=== PATIENT | female | born 1930 | race Caucasian/White ===

== ENCOUNTER 2016-10-17 15:52 | Inpatient (IN) ==
[2016-10-17] MEDS ORDERED: *HR* Morphine 2 MG/ML SYRINGE IV ONE (16:23)
[2016-10-17] MEDS ORDERED: Ondansetron 4 MG/2 ML VIAL IV ONE (16:23)
--- NOTE | 2016-10-17 16:25 | Emergency Department Note ---
Disposition Clinical Impression: Bronchitis Pancreatitis Qualifiers: Chronicity: acute Pancreatitis type: unspecified pancreatitis type Acute pancreatitis complication: no infection or necrosis Qualified Code(s): K85.90 - Acute pancreatitis without necrosis or infection, unspecified Abdominal pain Qualifiers: Abdominal location: generalized Qualified Code(s): R10.84 - Generalized abdominal pain Disposition: Admitted As Inpatient Condition: Fair Referrals: NO,PCP [Non-Partnered Physician] - Forms: Work/School Release, ED Satisfaction Letter Weakness HPI - General Chief complaint: ED General Medical Stated complaint: weakness/n/v/cough/abd pain/headache Time Seen by Provider: 10/17/16 15:55 Source: EMS Limitations: no limitations Nursing Notes Reviewed: Yes Vital Signs Reviewed: Yes - History of Present Illness HPI Narrative: Patient is a 86-year-old female with multiple complaints today. She was here 4 days ago for complaints of generalized weakness and cough she is placed in a Z- Fabricio for bronchitis. She still have a productive cough but now is also complaining of increasing weakness and abdominal pain. She has a prior history of colon cancer with resection and colostomy. She recently 1 month ago underwent a surgery for a hernia around her colostomy but no recurrence of her cancer. She states she is weak she is unable to and related home decreased by mouth intake secondary to abdominal pain Pt Subjective Complaint: generalized weakness/fatigue Pain Scale: 8 - Related Data Previous Rx's Medication Instructions Recorded Albuterol Neb [Proventil Neb] 2.5 mg IH Q6HR #30 vial.neb 10/13/16 Doxycycline 100 mg PO BID #20 capsule 10/13/16 Allergies Allergy/AdvReac Type Severity Reaction Status Date / Time amlodipine [From Lotrel] Allergy Hives Verified 07/24/16 00:54 bacitracin Allergy Hives Verified 07/24/16 00:54 [From Neosporin ([id number])] benazepril [From Lotrel] Allergy Hives Verified 07/24/16 00:54 cephalexin Allergy Hives Verified 07/24/16 00:54 codeine Allergy Hives Verified 07/24/16 00:34 Erythromycin Base Allergy Hives Verified 07/24/16 00:54 Neomycin Allergy Hives Verified 07/24/16 00:54 [From Neosporin ([id number])] olmesartan [From Benicar] Allergy Hives Verified 07/24/16 00:54 Penicillins Allergy Hives Verified 07/24/16 00:34 polymyxin B Allergy Hives Verified 07/24/16 00:54 [From Neosporin ([id number])] All systems ED: reviewed and negative except as stated. Constitutional: Reports: weakness Cardiovascular: Denies: palpitations Respiratory: Reports: cough Gastrointestinal: Reports: abdominal pain, nausea. Denies: vomiting, diarrhea Past Medical History - Past Medical History Source: patient, old records reviewed, obtained from family, nursing notes reviewed Medical history: Reports: arthritis, atrial fibrillation, cancer, hyperlipidemia , hypertension Psychiatric history: Reports: no psych history - Social History Smoking Status: Never smoker Smokeless Tobacco Status: No Alcohol use: Reports: none Drug use: Reports: none Physical Exam - General Limitations: no limitations General appearance: alert, other (He looks ill nontoxic appearing) - Head Head exam: atraumatic, normocephalic, normal inspection - Eye Eye exam: Present: normal appearance, PERRL, EOMI - ENT ENT exam: normal exam, normal oropharynx, mucous membranes moist - Neck Neck exam: Present: normal inspection, full ROM, trachea midline - Chest Chest inspection: Present: normal inspection, symmetric chest wall rise - Respiratory Respiratory exam: Present: other (Rhonchorous cough on exam). Absent: respiratory distress, wheezes, accessory muscle use - Cardiovascular Cardiovascular exam: Present: regular rate, normal rhythm, normal heart sounds - Abdominal Exam Abdominal exam: Present: other (Patient has diffuse abdominal pain with voluntary guarding patent ostomy pain is moderate in intensity) - Back Exam Back exam: Present: normal inspection, full ROM. Absent: tenderness - Neurological Exam Neurological exam: Present: alert, oriented X3 - Psychiatric Psychiatric exam: Present: normal affect, normal mood - Skin Skin exam: Present: warm, dry, intact, normal color Course Vital Signs Temperature 97.3 F L 10/17/16 15:54 Pulse Rate 77 10/17/16 15:54 Respiratory Rate 18 10/17/16 15:54 Blood Pressure 141/78 10/17/16 15:54 O2 Sat by Pulse Oximetry 90 L 10/17/16 15:54 Temperature 97.3 F L 10/17/16 15:54 Pulse Rate 75 10/17/16 18:10 Respiratory Rate 18 10/17/16 18:10 Blood Pressure 143/72 10/17/16 18:10 O2 Sat by Pulse Oximetry 93 L 10/17/16 18:10 Oxygen Delivery Oxygen Delivery Nasal Cannula Weakness - Differential Diagnosis Differential Diagnosis: Likely: sepsis/infection, dehydration, medication effect , metabolic - Medical Records Medical records reviewed: Yes I reviewed the patient's medical records. - Lab Data Lab results reviewed: Yes I reviewed the patient's lab results. Result diagrams: 10/17/16 17:30 10/17/16 17:30 Lab Results 10/17/16 10/17/16 10/17/16 Range/Units 17:30 17:30 17:30 WBC 10.3 D (4.3-11.1) K/mcL RBC 3.53 L (3.82-4.97) M/mcL Hgb 10.9 L (11.5-15.4) g/dL Hct 33.3 L (35.3-44.9) % MCV 94.3 (83.0-100.0) fL MCH 30.9 (28.0-33.3) pg MCHC 32.7 (31.6-35.5) g/dL RDW 18.8 H (11.5-14.5) % Plt Count 218 (140-400) K/mcL MPV 10.0 (9.4-12.4) fL Immature Gran % 0.7 (0-4) % Seg Neutrophils % 77.0 % Lymphocytes % 16.1 % Monocytes % 5.9 % Eosinophils % 0.1 % Basophils % 0.2 % Neutrophils # 7.9 (1.6-8.9) K/mcL Lymphocytes # 1.7 (0.6-4.6) K/mcL Monocytes # 0.6 (0.0-1.3) K/mcL Eosinophils # 0.0 (0.0-0.6) K/mcL Basophils # 0.0 (0.0-0.2) K/mcL PT 12.8 H (9.4-12.1) Seconds INR 1.2 APTT 27.4 (26.0-36.0) Seconds Sodium 135 L (136-145) mEq/L Potassium 3.7 (3.5-4.5) mEq/L Chloride 99 (98-109) mEq/L Carbon Dioxide 23 (19-29) mEq/L BUN 17 (7-20) mg/dL Creatinine 1.52 H (0.57-1.11) mg/dL Est GFR ( Amer) 39 L (> 60) Est GFR (Non-Af Amer) 33 L (> 60) BUN/Creatinine Ratio 11 (6-26) Glucose 93 (70-99) mg/dL Calculated Osmolality 281 (280-300) Calcium 8.7 (8.6-10.8) mg/dL Troponin I (0-0.03) ng/mL B-Natriuretic Peptide (0-100) pg/mL Amylase 278 H (25-125) Units/L Lipase 796 H (8-78) Units/L 10/17/16 10/17/16 Range/Units 17:30 17:30 WBC (4.3-11.1) K/mcL RBC (3.82-4.97) M/mcL Hgb (11.5-15.4) g/dL Hct (35.3-44.9) % MCV (83.0-100.0) fL MCH (28.0-33.3) pg MCHC (31.6-35.5) g/dL RDW (11.5-14.5) % Plt Count (140-400) K/mcL MPV (9.4-12.4) fL Immature Gran % (0-4) % Seg Neutrophils % % Lymphocytes % % Monocytes % % Eosinophils % % Basophils % % Neutrophils # (1.6-8.9) K/mcL Lymphocytes # (0.6-4.6) K/mcL Monocytes # (0.0-1.3) K/mcL Eosinophils # (0.0-0.6) K/mcL Basophils # (0.0-0.2) K/mcL PT (9.4-12.1) Seconds INR APTT (26.0-36.0) Seconds Sodium (136-145) mEq/L Potassium (3.5-4.5) mEq/L Chloride (98-109) mEq/L Carbon Dioxide (19-29) mEq/L BUN (7-20) mg/dL Creatinine (0.57-1.11) mg/dL Est GFR ( Amer) (> 60) Est GFR (Non-Af Amer) (> 60) BUN/Creatinine Ratio (6-26) Glucose (70-99) mg/dL Calculated Osmolality (280-300) Calcium (8.6-10.8) mg/dL Troponin I 0.02 (0-0.03) ng/mL B-Natriuretic Peptide 170 H (0-100) pg/mL Amylase (25-125) Units/L Lipase (8-78) Units/L - Radiology Data Radiology results reviewed: Yes I reviewed the patient's radiology results.
[2016-10-17 17:44] LABS: Basophils % 0.2 %; Eosinophils % 0.1 %; Hematocrit 33.3 % (35.3-44.9); Hemoglobin 10.9 g/dL (11.5-15.4); Immature Granulocytes % 0.7 % (0-4); Lymphocytes # 1.7 K/mcL (0.6-4.6); Lymphocytes % 16.1 %; Mean Corpuscular HGB Conc 32.7 g/dL (31.6-35.5); Mean Corpuscular Hemoglobin 30.9 pg (28.0-33.3); Mean Corpuscular Volume 94.3 fL (83.0-100.0); Monocytes # 0.6 K/mcL (0.0-1.3); Monocytes % 5.9 %; Platelet Count 218 K/mcL (140-400); Red Blood Count 3.53 M/mcL (3.82-4.97); Red Cell Distribution Width 18.8 % (11.5-14.5)
[2016-10-17 17:46] LABS: Neutrophils # 7.9 K/mcL (1.6-8.9)
[2016-10-17 17:48] LABS: INR 1.2; Prothrombin Time 12.8 Seconds (9.4-12.1)
[2016-10-17 17:50] LABS: Activated Partial Thrombo Time 27.4 Seconds (26.0-36.0)
[2016-10-17 17:56] LABS: Calcium 8.7 mg/dL (8.6-10.8); Potassium 3.7 mEq/L (3.5-4.5)
[2016-10-17] MEDS ORDERED: *HR* HYDROmorphone (PF) 1 MG/ML SYRINGE IV ONE (18:44)
[2016-10-17] MEDS ORDERED: 0.9 % Sodium Chloride 1,000 ML IVC ONE (18:45)
[2016-10-17] MEDS: Ipratropium/Albuterol Neb 3 ML IH ONE ×2 (20:00→22:37)
[2016-10-17 20:47] LABS: ABG Base Excess -0.8 mEq/L (-2.0 to 3.0); ABG HCO3 24.3 mEQ/L (21-27); ABG Oxygen Saturation 82 % (95-98); ABG PCO2 41 mmHg (35-45); ABG PH 7.38 pH Units (7.32-7.45); ABG TCO2 25.6 mEq/L (20-26)
[2016-10-17 20:50] LABS: ABG PO2 47 mmHg (85-104); Blood Gas FiO2 50 %
[2016-10-17] MEDS ORDERED: Ipratropium/Albuterol Neb 3 ML IH ONE (22:34)
[2016-10-17] MEDS ORDERED: Ipratropium/Albuterol Neb 3 ML ONE (22:35)
[2016-10-17] MEDS ORDERED: *HR* HYDROmorphone (PF) 1 MG/ML SYRINGE IVP PRN (23:29)
[2016-10-17] MEDS ORDERED: Naloxone 0.4 MG/ML INJ IVP PRN (23:29)
[2016-10-17] MEDS ORDERED: *HR* OxyCODONE/APAP 5/325 TABLET PO PRN (23:40)
[2016-10-17] MEDS ORDERED: Dextromethorphan Polistrx(12h) 30 MG/5 ML UDC PO PRN (23:44)
[2016-10-17] MEDS ORDERED: Ipratropium/Albuterol Neb 3 ML IH PRN (23:46)
[2016-10-18 00:07] LABS: Albumin 2.8 g/dL (3.5-5.0); Bilirubin,Direct 0.2 mg/dL (0.0-0.5); Bilirubin,Indirect 0.2 mg/dL (0.0-1.2); Bilirubin,Total 0.4 mg/dL (0.2-1.2); Globulin 2.7 g/dL (2.4-3.5); Total Protein 5.5 g/dL (6.0-8.3)
[2016-10-18] MEDS: *HR* Heparin 5,000 UNIT/ML VIAL SQ SCH ×2 (00:14→05:43)
[2016-10-18] MEDS ORDERED: *HR* Enoxaparin 40 MG/0.4 ML SYRINGE SQ STA (01:01)
--- NOTE | 2016-10-18 01:46 | Internal Med History&Physical ---
Date of Encounter: 10/18/16 Time of Encounter: 01:46 Assessment and Plan (1) Hypoxia Current visit: Yes Status: Acute Patient presents with progressive shortness of breath and lethargy. Found to be tachypneic and hypoxic in the ED. ABG showed normal pH and pCO2 but a pO2 of 47. Patient placed on CPAP with improvement in oxygenation saturation. Etiology of hypoxia is unclear. CT showed no pneumonia, bronchitis or atelectasis. Patient reports no history of COPD or other lung disease. Patient did recently have surgery (hernia repair 1 month ago) and so there is concern for a PE. Patient denies any chest pain, leg pain or swellling. Due to patients GFR, unable to do a CTA. Will give full strength lovenox and get a V/Q scan. 1. V/Q scan to evaluate for possible PE 2. Continue CPAP as needed to maintain oxygenation. 3. Patient reports that breathing treatments helped in the ED some, so will order albuterol Q4 hours as needed. (2) Pancreatitis Current visit: Yes Status: Acute Patient presents with abdominal pain. CT scan showed acute pancreatitis with amylase of 278 and lipase of 796. Etiology of pancreatitis is unknown - patient does not have her gallbladder and reports that she does not drink. Will make patient NPO, follow labs and provide supportive care 1. NPO 2. IV fluids at 175/hr 3. Percocet for mild pain with dilaudid for breakthrough 4. Labs: LFTs and Lipid panel 5. Trend amylase and lipase Qualifiers: Chronicity: acute Pancreatitis type: unspecified pancreatitis type Acute pancreatitis complication: no infection or necrosis Qualified Code(s): K85.90 - Acute pancreatitis without necrosis or infection, unspecified (3) Atrial fibrillation Current visit: Yes Status: Acute Patient with history of atrial fibrilation on amiodorone, propranolol and nefidipine. Currently patient is in normal sinus rhythm. Will continue medications as prescribed. Qualifiers: Atrial fibrillation type: paroxysmal Qualified Code(s): I48.0 - Paroxysmal atrial fibrillation (4) DVT prophylaxis Current visit: Yes Status: Acute Patient given lovenox for anticoagulation while evaluating for PE. Internal Medicine - H&P: HPI Chief complaint: Weakness and cough for 4 days Admitted From: Home Plans for Post Hospital Care: Home History of present illness: Ms. Mcmahon is a 86 year old female with past medical history including arthritis, atrial fibrillation, hyperlipidemia, hypertension, quality cancer status post resection colostomy. Patient reports to emergency department with 1 week of weakness and cough. Patient was in the ED 4 days ago and diagnosed with [place] is given ten-day prescription for doxycycline. Patient reports that since then cough and shortness of breath of God became progressively worse. Today she presents also complaining of abdominal pain. Patient has past history of asthma. Patient denies any history of COPD smoking. She reports that are proving is getting progressively worse and she is coughing up green, bloody sputum. Patients are reports that over the last 4 days patient has stopped eating and drinking in the searches have decreased colostomy output. For the last couple days when patient would go to the bathroom daughter reports that she would pass out and have to be carried. Daughter states that she believes this is because her mother stopped eating. The abdominal pain started today. When asked she says that her entire belly hurts. Pain is worse after eating. Patient denies headache, changes in vision, chest pain or pressure, nausea or vomiting, changes and bladder function. In the emergency room patient was found to have a heart rate in the 70s, respiratory rate 16-18, blood pressure 120s-140s/70s-90s. Patient was found to have a white count of 10.3 compared to 4.7 on 10/13. Creatinine elevated 1.52 GFR 33. Family reports that any kidney injury has just occurred within the last 2 months. 0.02. Amylase 278, lipase 796. CT of abdomen and pelvis showed acute pancreatitis with wall thickening the stomach likely secondary to the pancreatitis. CT chest showed no acute abnormalities - no effusions, pneumonia , atelectasis. On arrival to the floor patient was found to have an oxygenation saturation of 88% 10 L precedent Venti mask. On conversation patients oxygenation saturation with decreased into the 70s. Patient was placed on CPAP. On exam heart regular rate and rhythm. Lungs clear auscultation bilaterally - no wheezing or crackles. Abdomen diffusely tender to palpation with voluntary guarding. No rebounder rigidity. No pedal edema noted. Patient is DNR-Comfort Care Arrest. She wants everything done up to the point her heart would stop. She is okay with intubation for short term but does not want long term care pharmacist trach. Past Med Surg Social Fam HX - Past Medical History Medical history: arthritis, atrial fibrillation, cancer, hyperlipidemia, hypertension Psychiatric history: no psych history - Past Surgical History Surgical History: colostomy - Social History Smoking Status: Never smoker Smokeless Tobacco Status: No Alcohol use: none Drug use: none Internal Medicine - H&P: Meds Doxycycline 100 mg PO BID #20 capsule 10/13/16 [Rx] Albuterol Neb [Proventil Neb] 2.5 mg IH TID 10/17/16 [History] Amiodarone [Cordarone] 200 mg PO DAILY 10/17/16 [History] Aspirin Enteric Coated [Aspirin EC] 81 mg PO DAILY 10/17/16 [History] Dextromethorphan Polistirex [Delsym] 60 mg PO Q12H PRN 10/17/16 [History] Docusate [Colace] 200 mg PO BID 10/17/16 [History] Duloxetine [Cymbalta] 30 mg PO QAM 10/17/16 [History] HYDROcodone/Acet 5/325 mg [[place] 5-325 mg] 1 - 2 tab PO Q4-6H PRN 10/17/16 [ History] NIFEdipine [Nifedipine ER] 30 mg PO DAILY 10/17/16 [History] Omeprazole [PriLOSEC] 20 mg PO DAILY 10/17/16 [History] Polyethylene Glycol 3350 [MiraLAX] 17 gm PO DAILY 10/17/16 [History] Potassium Chloride [Klor-Con 10] 20 meq PO DAILY 10/17/16 [History] Propranolol [Inderal] 10 mg PO BID 10/17/16 [History] Allergies amlodipine [From Lotrel] Allergy (Verified 07/24/16 00:54) Hives bacitracin [From Neosporin ([id number])] Allergy (Verified 07/24/16 00:54) Hives benazepril [From Lotrel] Allergy (Verified 07/24/16 00:54) Hives cephalexin Allergy (Verified 07/24/16 00:54) Hives codeine Allergy (Verified 07/24/16 00:34) Hives Erythromycin Base Allergy (Verified 07/24/16 00:54) Hives Neomycin [From Neosporin ([id number])] Allergy (Verified 07/24/16 00:54) Hives olmesartan [From Benicar] Allergy (Verified 07/24/16 00:54) Hives Penicillins Allergy (Verified 07/24/16 00:34) Hives polymyxin B [From Neosporin ([id number])] Allergy (Verified 07/24/16 00:54) Hives All Systems PM: A 10-system review of systems was performed and is negative for pertinent findings except as documented above in the HPI. - Constitutional Constitutional: no chills, no fever(s) - EENT Eyes: no blurry vision, no change in vision - Cardiovascular Cardiovascular ROS IM: dyspnea, dyspnea on exertion, no chest pain, no irregular heart rhythm, no palpitations - Respiratory Respiratory: cough, dyspnea on exertion, no wheezing, no pain on inspiration - Gastrointestinal Gastrointestinal: abdominal pain, no hematochezia, no melena, no nausea, no vomiting Additional comments: Decreased colostomy output. - Genitourinary Genitourinary: no dysuria - Neurological Neurological ROS: no confusion, no headache(s), no loss of vision - Psychiatric Psychiatric: depression (4reported by daughter) - Constitutional Vitals: Temp Pulse Resp BP Pulse Ox 99.1 F 76 15 115/58 88 L 10/17/16 22:35 10/17/16 22:35 10/17/16 22:35 10/17/16 22:35 10/17/16 22:43 General appearance: Present: A&O X 3, pleasant, answers questions appropriately - Head Head exam: Present: atraumatic, normal inspection, normocephalic - Eye Eye exam: Present: EOMI, normal appearance, PERRL - Respiratory Respiratory exam: Present: CTAB, tachypnea. Absent: decreased breath sounds, rhonchi, wheezes Additional comments: Hypoxia - Cardiovascular Cardiovascular exam: Present: RRR - GI/Abdominal GI/Abdominal exam: Present: soft, tenderness. Absent: distended, guarding, rebound, rigid - Extremities Exam Extremities exam: Present: normal inspection. Absent: pedal edema - Neurological Exam Neurological exam: Present: alert, CN II-XII intact, oriented X3, no focal deficits Internal Med - H&P Results - Labs CBC & Chem 7: 10/17/16 17:30 10/17/16 17:30 - ABG Interpretation ABG results: 10/17/16 20:37 ABG pH 7.38 ABG pCO2 41 ABG pO2 47 L* ABG HCO3 24.3 ABG Total CO2 25.6 ABG O2 Saturation 82 L ABG Base Excess -0.8
[2016-10-18] MEDS: 0.9 % Sodium Chloride 1,000 ML IVC SCH ×4 (05:53→20:30)
[2016-10-18] MEDS ORDERED: Famotidine 20 MG/2 ML VIAL IVP SCH (06:00)
[2016-10-18 06:05] LABS: Basophils % 0.2 %; Eosinophils % 0.1 %; Hematocrit 32.2 % (35.3-44.9); Hemoglobin 10.4 g/dL (11.5-15.4); Immature Granulocytes % 0.8 % (0-4); Lymphocytes # 1.5 K/mcL (0.6-4.6); Mean Corpuscular HGB Conc 32.3 g/dL (31.6-35.5); Mean Corpuscular Hemoglobin 30.4 pg (28.0-33.3); Mean Corpuscular Volume 94.2 fL (83.0-100.0); Mean Platelet Volume 9.9 fL (9.4-12.4); Monocytes # 0.8 K/mcL (0.0-1.3); Monocytes % 5.6 %; Neutrophils # 12.1 K/mcL (1.6-8.9); Platelet Count 198 K/mcL (140-400); Red Blood Count 3.42 M/mcL (3.82-4.97); Red Cell Distribution Width 18.7 % (11.5-14.5); Segmented Neutrophils % 83.3 %
[2016-10-18 06:09] LABS: INR 1.3; Prothrombin Time 14.5 Seconds (9.4-12.1)
[2016-10-18 06:13] LABS: Activated Partial Thrombo Time 48.2 Seconds (26.0-36.0)
[2016-10-18 06:20] LABS: Albumin 2.4 g/dL (3.5-5.0); Albumin/Globulin Ratio 0.9 (1.1-2.2); Bilirubin,Total 0.4 mg/dL (0.2-1.2); Calcium 7.8 mg/dL (8.6-10.8); Chol/HDL Ratio 2.5 (0-4.9); Globulin 2.8 g/dL (2.4-3.5); Phosphorous 3.4 mg/dL (2.3-4.7); Total Protein 5.2 g/dL (6.0-8.3)
--- NOTE | 2016-10-18 07:06 | Event Note ---
Date of Encounter: 10/18/16 Time of Encounter: 07:01 Because of patient unexplained hypoxia there is concern for a possible PE. We were unable to do a CTA due to GFR. We were planning on doing a V/Q scan. However, this morning the food quality technician call and spoke with me. She was uncomfortable with the fact that the patient is on 15L venti mask at this time. Because of this, will order therapeutic dose lovenox at 0.75mg/kg BID. Will try and re-attempt the V/Q scan later today or develop an alternative plan.
[2016-10-18] MEDS: *HR* Amiodarone 200 MG TABLET PO SCH (09:32)
[2016-10-18] MEDS: NIFEdipine XL (24 HR) 30 MG TAB.ER.24 PO SCH (09:33)
[2016-10-18] MEDS ORDERED: Magnesium Sulfate 2 GM in D5% in Water 100 ML IVPB ONE (10:39)
[2016-10-18] MEDS ORDERED: *HR* Enoxaparin 60 MG/0.6 ML SYRINGE SQ SCH (13:00)
--- NOTE | 2016-10-18 15:11 | Internal Med Progress Note ---
<Ebenezer Coffey - Last Filed: 10/19/16 15:06> Date of Encounter: 10/19/16 Time of Encounter: 10:00 - Assessment and plan (1) Hypoxia Current Visit: Yes Status: Acute Assessment and plan: Patient came in with progressing shortness of breath. Patient recently had hernia surgery 1 month ago- concern for PE. Patient denies chest pain. CXR showed no acute cardiopulmonary disease. Unable to do CTA because of kidney function. unable to do V/Q scan because patient becomes hypoxic with little movement, cannot wean her off venti mask today. Highly suspect PE. Her WELLS score is 7- high risk category. Will prophylactically treat for PE with therapeutic lovenox (dose Q24 hours due to decreased Creatinine clearance). ABG revealed pO2 of 47- will repeat ABG tomorrow morning. Patient scheduled for V/Q scan tomorrow if she is more stable and is able to be weaned off ventimask. Order Echo- as patient is higher risk due to history of Afib. Doppler of bilateral lower extremities pending. breathing treatments Q4HR (2) Pancreatitis Current Visit: Yes Status: Acute Assessment and plan: Patient complaining of abdominal pain. CT Abdomen/Pelvis showed inflammatory changes in the region of the pancreas most pronounced in the region of the pancreatic head consistent with acute pancreatitis, and mild thickening of the wall of the stomach, which may be reactive to the pancreatitis. wall of the colon was mildly thickened. AST elevated, cholesterol levels within normal limits, Amylase 305, Lipase 521. trend amylase/lipase. NPO IVF at 175/hr pain control. This patient is elderly and frail- consider TPN at a later time. Qualifiers: Chronicity: acute Pancreatitis type: unspecified pancreatitis type Acute pancreatitis complication: unspecified Qualified Code(s): K85.90 - Acute pancreatitis without necrosis or infection, unspecified (3) Leukocytosis Current Visit: Yes Status: Acute Assessment and plan: patient does not currently meet SIRS criteria, but may have acute bronchitis. She has a productive cough with green sputum production. because of her age and comorbidities, we will treat prophylactically with renally dosed Levaquin. blood culture x2 pending urine culture pending will trend lactate Qualifiers: Leukocytosis type: unspecified Qualified Code(s): D72.829 - Elevated white blood cell count, unspecified (4) Atrial fibrillation Current Visit: Yes Status: Acute Assessment and plan: continue home meds Amiodarone, propanolol. Echo pending. Qualifiers: Atrial fibrillation type: paroxysmal Qualified Code(s): I48.0 - Paroxysmal atrial fibrillation (5) Hypokalemia Current Visit: Yes Status: Acute Assessment and plan: hold oral potassium. Patient had 40mEq given this morning, another 40mEq will be transfused later tonight. Repleted Mg with 2g. will recheck levels tomorrow. (6) DVT prophylaxis Current Visit: Yes Status: Acute Assessment and plan: Lovenox 1mg/kg - Subjective Interval history: 86 year old female evaluated at bedside. She came to the ED last night with CC of shortness of breath and hypoxia. She was diagnosed with pancreatitis. ABG confirmed hypoxia. Patient has not been able to be weaned off ventimask. She denies nausea, vomiting. She denies fever but admits to chills. She denies any chest pain. Patient has had a constant cough, and she has been coughing up dark green bloody sputum since yesterday morning. Per daughter, patient has a history of blood clots but has never been on any blood thinners. - Constitutional Vitals: Temp Pulse Resp BP Pulse Ox 97.8 F 82 18 126/56 94 L 10/18/16 11:19 10/18/16 11:19 10/18/16 11:19 10/18/16 11:19 10/18/16 11:19 General appearance: Present: mild distress, A&O X 3, pleasant, answers questions appropriately - Head Head exam: Present: atraumatic, normocephalic - Eye Eye exam: Absent: nystagmus, scleral icterus - Neck Neck exam general surgery: Present: supple, trachea midline - Respiratory Respiratory exam: Present: rales, rhonchi, wheezes (inspoiratory and expiratory wheezing present. ) - GI/Abdominal GI/Abdominal exam: Absent: guarding, soft, tenderness Additional comments: colostomy preset on right lower side of abdomen. Abdominal scars present. - Extremities Exam Extremities exam: Present: normal capillary refill, radial pulses palpable and symetrical. Absent: cyanotic, pedal edema - Neurological Exam Neurological exam: Present: alert, oriented X3, no focal deficits Internal Medicine: Result - Labs CBC & Chem 7: 10/19/16 03:29 10/19/16 03:29 Labs: Short CBC 10/18/16 Range/Units 05:54 WBC 14.6 H (4.3-11.1) K/mcL Hgb 10.4 L (11.5-15.4) g/dL Hct 32.2 L (35.3-44.9) % Plt Count 198 (140-400) K/mcL Neutrophils # 12.1 H (1.6-8.9) K/mcL BMP 10/18/16 05:54 Sodium 137 Potassium 3.0 L Chloride 104 Carbon Dioxide 21 BUN 18 Creatinine 1.31 H Glucose 75 Calcium 7.8 L Liver Function 10/18/16 Range/Units 05:54 Total Bilirubin 0.4 (0.2-1.2) mg/dL AST 48 H (5-34) Units/L ALT 18 (0-55) Units/L Alkaline Phosphatase 107 (38-126) Units/L Albumin 2.4 L (3.5-5.0) g/dL - ABG Interpretation ABG results: ABG ABG pH 7.38 pH Units (7.32-7.45) 10/17/16 20:37 ABG pCO2 41 mmHg (35-45) 10/17/16 20:37 ABG pO2 47 mmHg (85-104) L* 10/17/16 20:37 ABG O2 Saturation 82 % (95-98) L 10/17/16 20:37 PT/INR, D-dimer PT 14.5 Seconds (9.4-12.1) H 10/18/16 05:54 Consult Discharge Plan - Plan Referrals: Marie Valencia M.D. [Primary Care Provider] - <Steve Knox - Last Filed: 10/19/16 18:33> Date of Encounter: 10/19/16 - Constitutional Vitals: Temp Pulse Resp BP Pulse Ox 98.3 F 70 18 143/72 91 L 10/18/16 15:00 10/18/16 15:00 10/18/16 15:00 10/18/16 15:00 10/18/16 15:00 Internal Medicine: Result - Labs CBC & Chem 7: 10/19/16 03:29 10/19/16 03:29 Labs: Short CBC 10/18/16 Range/Units 05:54 WBC 14.6 H (4.3-11.1) K/mcL Hgb 10.4 L (11.5-15.4) g/dL Hct 32.2 L (35.3-44.9) % Plt Count 198 (140-400) K/mcL Neutrophils # 12.1 H (1.6-8.9) K/mcL BMP 10/18/16 05:54 Sodium 137 Potassium 3.0 L Chloride 104 Carbon Dioxide 21 BUN 18 Creatinine 1.31 H Glucose 75 Calcium 7.8 L Liver Function 10/18/16 Range/Units 05:54 Total Bilirubin 0.4 (0.2-1.2) mg/dL AST 48 H (5-34) Units/L ALT 18 (0-55) Units/L Alkaline Phosphatase 107 (38-126) Units/L Albumin 2.4 L (3.5-5.0) g/dL - ABG Interpretation ABG results: ABG ABG pH 7.38 pH Units (7.32-7.45) 10/17/16 20:37 ABG pCO2 41 mmHg (35-45) 10/17/16 20:37 ABG pO2 47 mmHg (85-104) L* 10/17/16 20:37 ABG O2 Saturation 82 % (95-98) L 10/17/16 20:37 PT/INR, D-dimer PT 14.5 Seconds (9.4-12.1) H 10/18/16 05:54 - Attending Attestation I examined this patient and my medical decision-making was reviewed with the Resident Physician on 10/18/16. I agree with the documented findings, disposition and treatment plan as described except to the extent set forth below. Ms. Mcmahon was admitted earlier this morning for acute hypoxic respiratory failure. Ms. Mcamhon is still quite dyspneic and hypoxic. She desaturates with any movement. Exam Alert. Mod resp distress Rhonchi bilaterally I/P 1. Acute hypoxic resp failure To have V/Q scan Further diagnoses and plan as above.
[2016-10-18] MEDS ORDERED: Levofloxacin 500 MG/100 ML 500 MG/100 ML BAG IVPB ONE (16:06)
[2016-10-18] MEDS: Famotidine 20 MG/2 ML VIAL IVP SCH (17:52)
[2016-10-18] MEDS: *HR* Enoxaparin 60 MG/0.6 ML SYRINGE SQ SCH (19:45)
[2016-10-18] MEDS ORDERED: Potassium Chloride 40 MEQ, Lidocaine 1% 2 ML in D5% in Water 500 ML IVPB ONE (20:37)
[2016-10-19 03:36] LABS: Basophils % 0.2 %; Eosinophils % 0.1 %; Hematocrit 28.7 % (35.3-44.9); Hemoglobin 9.1 g/dL (11.5-15.4); Immature Granulocytes % 1.4 % (0-4); Lymphocytes # 1.1 K/mcL (0.6-4.6); Lymphocytes % 6.2 %; Mean Corpuscular HGB Conc 31.7 g/dL (31.6-35.5); Mean Corpuscular Hemoglobin 30.5 pg (28.0-33.3); Mean Corpuscular Volume 96.3 fL (83.0-100.0); Mean Platelet Volume 9.8 fL (9.4-12.4); Monocytes # 0.7 K/mcL (0.0-1.3); Platelet Count 147 K/mcL (140-400); Red Blood Count 2.98 M/mcL (3.82-4.97); Red Cell Distribution Width 18.7 % (11.5-14.5); Segmented Neutrophils % 88.1 %
[2016-10-19 03:41] LABS: INR 1.6
[2016-10-19 03:44] LABS: Activated Partial Thrombo Time 54.5 Seconds (26.0-36.0)
[2016-10-19 03:49] LABS: Alanine Aminotransferase 20 Units/L (0-55); Albumin/Globulin Ratio 0.8 (1.1-2.2); Alkaline Phosphatase 93 Units/L (38-126); Amylase 137 Units/L (25-125); Aspartate Amino Transferase 57 Units/L (5-34); BUN/Creatinine Ratio 16 (6-26); Bilirubin,Total 0.5 mg/dL (0.2-1.2); Blood Urea Nitrogen 14 mg/dL (7-20); Calcium 7.4 mg/dL (8.6-10.8); Carbon Dioxide 20 mEq/L (19-29); Chloride 108 mEq/L (98-109); Globulin 2.4 g/dL (2.4-3.5); Glucose 93 mg/dL (70-99); Lipase 109 Units/L (8-78); Magnesium 1.1 mg/dL (1.6-2.6); Osmolality,Calculated 280 (280-300); Phosphorous 1.9 mg/dL (2.3-4.7); Potassium 3.4 mEq/L (3.5-4.5); Sodium 135 mEq/L (136-145); Total Protein 4.4 g/dL (6.0-8.3); eGFR For African Americans > 60 (> 60); eGFR For Non-African Americans > 60 (> 60)
[2016-10-19] MEDS: Famotidine 20 MG/2 ML VIAL IVP SCH ×2 (05:13→17:42)
[2016-10-19 05:30] LABS: ABG Base Excess -3.5 mEq/L (-2.0 to 3.0); ABG HCO3 21.4 mEQ/L (21-27); ABG Oxygen Saturation 97 % (95-98); ABG PCO2 37 mmHg (35-45); ABG PH 7.37 pH Units (7.32-7.45); ABG PO2 96 mmHg (85-104); ABG TCO2 22.5 mEq/L (20-26)
[2016-10-19 05:31] LABS: Blood Gas FiO2 60 %
[2016-10-19] MEDS ORDERED: Magnesium Sulfate 2 GM in D5% in Water 100 ML IVPB ONE (08:00)
[2016-10-19] MEDS ORDERED: Potassium Chloride 40 MEQ, Lidocaine 1% 2 ML in D5% in Water 500 ML IVPB ONE (08:00)
[2016-10-19] MEDS ORDERED: Potassium Phosphate 44 MEQ in 0.9 % Sodium Chloride 250 ML IVPB ONE (08:08)
[2016-10-19] MEDS ORDERED: Levofloxacin 250 MG/50 ML 250 MG/50 ML BAG IVPB SCH (09:00)
[2016-10-19] MEDS ORDERED: 0.9 % Sodium Chloride 1,000 ML IVC SCH (09:24)
[2016-10-19] MEDS: NIFEdipine XL (24 HR) 30 MG TAB.ER.24 PO SCH (09:54)
[2016-10-19] MEDS: Aspirin Enteric Coated 81 MG Tablet PO SCH (09:54)
[2016-10-19] MEDS: *HR* Amiodarone 200 MG TABLET PO SCH (09:54)
[2016-10-19] MEDS: Benzonatate 100 MG CAPSULE PO SCH ×3 (10:44→20:03)
--- NOTE | 2016-10-19 13:03 | ECHO - Doppler Report ---
Echocardiogram Name: Ailyn Mcmahon Date of Study: 10/19/2016 Date: 1930 Ht: 61.0 in Medical Record#: [id number] Age: 86 Wt: 117.0 lb Gender: Female BSA: 1.5 Order #: [id number] Location: [facility] Room #: 2ne21 Reading Physician: Felecia Cotton DO Supervisor [employer]or Recruiters: Dudley Pandey RDCS Ordering Physician: Ebenezer Coffey DO Primary Physician: None Indications: Atrial Fibrillation Impressions: LVEF 65%. Normal left ventricular size and systolic function. There is evidence of mild diastolic dysfunction of the left ventricle. Dilated RV with normal function. Mild tricuspid regurgitation. No pulmonary hypertension. Left Ventricular Wall Motion: Rest Echo Findings All wall segments showed normal motion. Findings: Study Quality * Technically adequate exam. ECG Findings * Normal sinus rhythm. Left Ventricle * LVEF 65%. * Normal LV chamber size, wall thickness and function. * Mild left ventricular diastolic dysfunction. Left Atrium * Normal left atrial size. Mitral Valve * Normal mitral valve structure. * No mitral stenosis. * Mild mitral annular calcification * Trace mitral regurgitation. Aortic Valve * No aortic regurgitation. * Aortic valve not well visualized. * No aortic stenosis. Tricuspid Valve * Mild tricuspid regurgitation. * Normal tricuspid valve structure. * Estimated RA pressure is 3 mmHg. * Estimated RVSP is 34 mmHg. * No pulmonary hypertension. Pulmonic Valve * Pulmonic valve is not well visualized. * No pulmonic stenosis. * No pulmonic regurgitation. Pulmonary Artery * Pulmonary artery not well visualized. Right Ventricle * Dilated RV with normal function. Right Atrium * Mildly dilated right atrium. Interatrial Septum * No evidence of PFO by color Doppler. IVC * The IVC is not dilated. Pericardium * There is no pericardial effusion present. Aorta * Normally sized aortic root. History Measurements: BP: 157/ 76 2D Normal Values IVSd: .70 cm 0.6 - 1.0 cm LVIDd: 4.20 cm 3.7 - 5.6 cm LVPWd: .70 cm 0.6 - 1.1 cm LVIDs: 2.40 cm 1.5 - 3.6 cm AO: 2.50 cm < 4.0 cm LA: 3.20 cm 2.0 - 4.0cm %FS: 42.90 cm >25 % LA volume: 22 Mitral Valve Peak E:1.12 m/sec Peak A:.81 m/sec E/A Ratio:1.4 Peak E' Lat Rick:9.94 cm/s Peak E' Med Rick:9.65 cm/s E/E' Lat Ratio:11.3 E/E' Med Ratio:11.6 Tricuspid Valve TV Regurg Peak Grad: 31.00mmHg TV Regurg Peak Rick: 2.77m/sec Updated by Felecia Cotton on 10/19/2016 12:58:12 PM electronically signed on 10/19/2016 12:58:44 PM with status of Final Wall Motion Felician[place]: 1=Normal, 2=Hypokinesis, 3=Akinesis, 4=Dyskinesis, 5=Aneurysmal, 6=Hyperkinetic, X=Not Visualized (Blank)=Missing
--- NOTE | 2016-10-19 15:19 | Internal Med Progress Note ---
<Ebenezer Coffey - Last Filed: 10/19/16 18:11> Date of Encounter: 10/19/16 Time of Encounter: 11:00 - Assessment and plan (1) HAP (hospital-acquired pneumonia) Current Visit: Yes Status: Acute Assessment and plan: Patient has been in the hospital multiple times over the past several months. HAP is the likely etiology of her hypoxia. However, must consider aspiration pneumonia as a cause as well. Patient coughs significantlly when trying to eat. Consult to speech therapy made for recommendations. White count today 18.1 Patient continues to cough significantly. She was weaned down to 6.5L high flow nasal canula. She has a productive cough with green sputum production. blood culture x2 showed no growth. Influenza A and B antigen negative. urine culture pending Lactate and ABG normal. Added Tessalon for cough. Added 40mg IV methylprednisolone BID. Stopped Levaquin, start Aztreonam, Vanc, Cipro (2) Leukocytosis Current Visit: Yes Status: Acute Assessment and plan: Plan as above. Qualifiers: Leukocytosis type: unspecified Qualified Code(s): D72.829 - Elevated white blood cell count, unspecified (3) Hypoxia Current Visit: Yes Status: Acute Assessment and plan: Patient came in with progressing shortness of breath. Patient recently had hernia surgery 1 month ago- concern for PE. Patient denies chest pain. CXR showed no acute cardiopulmonary disease. Unable to do CTA because of kidney function. unable to do V/Q scan because patient becomes hypoxic with little movement, cannot wean her off venti mask today. Highly suspect PE. Her WELLS score is 7- high risk category. Will prophylactically treat for PE with therapeutic lovenox (dose Q24 hours due to decreased Creatinine clearance). ABG revealed pO2 of 47- will repeat ABG tomorrow morning. Patient scheduled for V/Q scan tomorrow if she is more stable and is able to be weaned off ventimask. Order Echo- as patient is higher risk due to history of Afib. Doppler of bilateral lower extremities pending. breathing treatments Q4HR 10/19/16 Bilateral lower extremity doppler negative for DVT. Patient refused V/Q scan today- ordered CTA CTA showed no PE, but showed right lower lobe pneumonia and developing pulmonary edema- plan as #1 above. (4) Pancreatitis Current Visit: Yes Status: Acute Assessment and plan: Patient complaining of abdominal pain. CT Abdomen/Pelvis showed inflammatory changes in the region of the pancreas most pronounced in the region of the pancreatic head consistent with acute pancreatitis, and mild thickening of the wall of the stomach, which may be reactive to the pancreatitis. wall of the colon was mildly thickened. AST elevated, cholesterol levels within normal limits, Amylase 305, Lipase 521. trend amylase/lipase. NPO IVF at 175/hr pain control. 10/19/16 CTA showed bilateral pleural effusions. IVF stopped. Plan to start clear liquid diet tomorrow and advance as tolerated. Qualifiers: Chronicity: acute Pancreatitis type: unspecified pancreatitis type Acute pancreatitis complication: unspecified Qualified Code(s): K85.90 - Acute pancreatitis without necrosis or infection, unspecified (5) Atrial fibrillation Current Visit: Yes Status: Acute Assessment and plan: continue home meds Amiodarone, propanolol. Echo pending from 10/19 showed LVEF 65%, normal LV size and systolic function, mild diastolic dysfunction. Dilated RV from echo-suggests possible clot. Continue with therapeutic lovenox for anticoagulation. Qualifiers: Atrial fibrillation type: paroxysmal Qualified Code(s): I48.0 - Paroxysmal atrial fibrillation (6) Hypokalemia Current Visit: Yes Status: Acute Assessment and plan: hold oral potassium. replace Mg, Phos, potassium (7) DVT prophylaxis Current Visit: Yes Status: Acute Assessment and plan: Lovenox 1mg/kg - Subjective Interval history: 86 year old female evaluated at bedside. Patient complains of dry mouth. She was told that she may have one cup of ice chips every six hours for dry mouth. She is oxygenating better today on 7L nasal canula, will try to wean down today. - Constitutional Vitals: Temp Pulse Resp BP Pulse Ox 97.6 F 83 18 157/76 100 10/19/16 11:17 10/19/16 11:17 10/19/16 11:17 10/19/16 11:17 10/19/16 11:17 General appearance: Present: mild distress, A&O X 3, pleasant, answers questions appropriately - Head Head exam: Present: atraumatic, normocephalic - Neck Neck exam general surgery: Present: supple, trachea midline - Respiratory Respiratory exam: Present: rhonchi, wheezes (inspiratory and expiratory wheezing present. 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 Scar present from recent abdominal surgery. - Extremities Exam Extremities exam: Absent: cyanotic, pedal edema - Neurological Exam Neurological exam: Present: alert, oriented X3 - Psychiatric Psychiatric exam: Present: anxious - Skin Additional comments: skin is very thin and fragile. Internal Medicine: Result - Labs CBC & Chem 7: 10/19/16 03:29 10/19/16 03:29 Labs: Short CBC 10/19/16 Range/Units 03:29 WBC 18.1 H (4.3-11.1) K/mcL Hgb 9.1 L (11.5-15.4) g/dL Hct 28.7 L (35.3-44.9) % Plt Count 147 (140-400) K/mcL Neutrophils # 16.0 H (1.6-8.9) K/mcL BMP 10/19/16 03:29 Sodium 135 L Potassium 3.4 L Chloride 108 Carbon Dioxide 20 BUN 14 Creatinine 0.89 Glucose 93 Calcium 7.4 L Liver Function 10/19/16 Range/Units 03:29 Total Bilirubin 0.5 (0.2-1.2) mg/dL AST 57 H (5-34) Units/L ALT 20 (0-55) Units/L Alkaline Phosphatase 93 (38-126) Units/L Albumin 2.0 L (3.5-5.0) g/dL - ABG Interpretation ABG results: ABG ABG pH 7.37 pH Units (7.32-7.45) 10/19/16 05:18 ABG pCO2 37 mmHg (35-45) 10/19/16 05:18 ABG pO2 96 mmHg (85-104) 10/19/16 05:18 ABG O2 Saturation 97 % (95-98) 10/19/16 05:18 PT/INR, D-dimer PT 17.0 Seconds (9.4-12.1) H 10/19/16 03:29 Consult Discharge Plan - Plan Referrals: Marie Valencia M.D. [Primary Care Provider] - <Steve Knox - Last Filed: 10/19/16 18:40> Date of Encounter: 10/19/16 - Assessment and plan (1) Acute respiratory failure with hypoxia Current Visit: Yes Status: Acute Assessment and plan: Wean oxygen as able CTA has shown pneumonia. (2) HAP (hospital-acquired pneumonia) Current Visit: Yes Status: Acute (3) Aspiration pneumonia Current Visit: Yes Status: Suspected Assessment and plan: Pt coughed eating cracker today. Will get speech to see tomorrow. Qualifiers: Aspiration pneumonia type: unspecified Laterality: right Lung location: middle lobe of lung Qualified Code(s): J69.0 - Pneumonitis due to inhalation of food and vomit (4) Pancreatitis Current Visit: Yes Status: Acute Qualifiers: Chronicity: acute Pancreatitis type: other Acute pancreatitis complication: unspecified Qualified Code(s): K85.80 - Other acute pancreatitis without necrosis or infection (5) Atrial fibrillation Current Visit: Yes Status: Acute Qualifiers: Atrial fibrillation type: paroxysmal Qualified Code(s): I48.0 - Paroxysmal atrial fibrillation (6) Hypokalemia Current Visit: Yes Status: Acute (7) Leukocytosis Current Visit: Yes Status: Acute Qualifiers: Leukocytosis type: unspecified Qualified Code(s): D72.829 - Elevated white blood cell count, unspecified - Constitutional Vitals: Temp Pulse Resp BP Pulse Ox 98.5 F 77 22 124/63 100 10/19/16 15:00 10/19/16 15:00 10/19/16 15:00 10/19/16 15:00 10/19/16 15:00 Internal Medicine: Result - Labs CBC & Chem 7: 10/19/16 03:29 10/19/16 03:29 Labs: Short CBC 10/19/16 Range/Units 03:29 WBC 18.1 H (4.3-11.1) K/mcL Hgb 9.1 L (11.5-15.4) g/dL Hct 28.7 L (35.3-44.9) % Plt Count 147 (140-400) K/mcL Neutrophils # 16.0 H (1.6-8.9) K/mcL BMP 10/19/16 03:29 Sodium 135 L Potassium 3.4 L Chloride 108 Carbon Dioxide 20 BUN 14 Creatinine 0.89 Glucose 93 Calcium 7.4 L Liver Function 10/19/16 Range/Units 03:29 Total Bilirubin 0.5 (0.2-1.2) mg/dL AST 57 H (5-34) Units/L ALT 20 (0-55) Units/L Alkaline Phosphatase 93 (38-126) Units/L Albumin 2.0 L (3.5-5.0) g/dL - ABG Interpretation ABG results: ABG ABG pH 7.37 pH Units (7.32-7.45) 10/19/16 05:18 ABG pCO2 37 mmHg (35-45) 10/19/16 05:18 ABG pO2 96 mmHg (85-104) 10/19/16 05:18 ABG O2 Saturation 97 % (95-98) 10/19/16 05:18 PT/INR, D-dimer PT 17.0 Seconds (9.4-12.1) H 10/19/16 03:29 - Impressions Impressions Chest CTA 10/19/16 11:52 IMPRESSION: No acute pulmonary embolus is appreciated. New bilateral pleural effusions, right greater than left with basilar consolidative changes, right greater than left. New airspace disease to a lesser extent involving the right middle lobe and lingula. Inflammatory airways type nodularity is seen within the right lower lobe and right middle lobe. These changes could reflect combination of pneumonia and/or aspiration. Associated developing pulmonary edema may also be present. Clinical correlation and radiographic follow-up is recommended. Partially visualized changes in the upper abdomen suggestive of pancreatitis, as was recently described. D/ / Zeke Cash MD / Zeke Cash MD Interpreting Provider: Zeke Cash MD - Attending Attestation I examined this patient and my medical decision-making was reviewed with the Resident Physician on 10/19/16. I agree with the documented findings, disposition and treatment plan as described except to the extent set forth below. Ms. Mcmahon is currently admitted for acute hypoxic respiratory failure. She remains high risk due to potential for further respiratory compromise. Ms Mcmahon is still quite dyspneic and hypoxic. She has been able to maintain oxygen sats on high flow NC. Coughing some. No fever. Hungry. Family at bedside and questioning transferring her to [place] where she had her surgery done recently. Exam Alert. Mod resp distress Heart reg - not tachy Lungs with rhonchi and wheeze bilaterally Abd with some epigastric tenderness I/P 1. Acute hypoxic resp failure - PE vs other. Can have CTA today as renal function has improved. 2. Acute pancreatitis - ice chips OK Further diagnoses and plan as above.
[2016-10-19] MEDS ORDERED: Vancomycin 750 MG in D5% in Water 250 ML IVPB SCH (16:00)
[2016-10-19] MEDS ORDERED: Vancomycin 750 MG in D5% in Water 250 ML IVPB ONE (17:00)
[2016-10-19] MEDS: Aztreonam 2,000 MG in D5% in Water (Mini-Bag+) 100 ML IVPB SCH ×2 (17:43→23:33)
[2016-10-19] MEDS: MethylPREDNISolone 40 MG/ML VIAL IVP SCH (17:43)
[2016-10-19] MEDS: *HR* Enoxaparin 60 MG/0.6 ML SYRINGE SQ SCH (20:03)
[2016-10-20 04:47] LABS: Basophils % 0.1 %; Hematocrit 27.9 % (35.3-44.9); Hemoglobin 8.8 g/dL (11.5-15.4); Immature Granulocytes % 1.6 % (0-4); Lymphocytes # 0.6 K/mcL (0.6-4.6); Lymphocytes % 3.9 %; Mean Corpuscular HGB Conc 31.5 g/dL (31.6-35.5); Mean Corpuscular Hemoglobin 30.6 pg (28.0-33.3); Mean Corpuscular Volume 96.9 fL (83.0-100.0); Mean Platelet Volume 10.6 fL (9.4-12.4); Monocytes # 0.3 K/mcL (0.0-1.3); Neutrophils # 14.6 K/mcL (1.6-8.9); Platelet Count 131 K/mcL (140-400); Red Blood Count 2.88 M/mcL (3.82-4.97); Segmented Neutrophils % 92.4 %
[2016-10-20 04:52] LABS: INR 1.4; Prothrombin Time 14.9 Seconds (9.4-12.1)
[2016-10-20 04:55] LABS: Activated Partial Thrombo Time 45.4 Seconds (26.0-36.0)
[2016-10-20 05:04] LABS: Amylase 51 Units/L (25-125); Lipase 51 Units/L (8-78)
[2016-10-20 05:11] LABS: Alanine Aminotransferase 20 Units/L (0-55); Albumin/Globulin Ratio 0.8 (1.1-2.2); Alkaline Phosphatase 101 Units/L (38-126); Aspartate Amino Transferase 42 Units/L (5-34); BUN/Creatinine Ratio 17 (6-26); Bilirubin,Total 0.6 mg/dL (0.2-1.2); Blood Urea Nitrogen 14 mg/dL (7-20); Calcium 7.9 mg/dL (8.6-10.8); Carbon Dioxide 20 mEq/L (19-29); Chloride 107 mEq/L (98-109); Globulin 2.6 g/dL (2.4-3.5); Glucose 127 mg/dL (70-99); Magnesium 1.2 mg/dL (1.6-2.6); Osmolality,Calculated 282 (280-300); Potassium 3.5 mEq/L (3.5-4.5); Sodium 135 mEq/L (136-145); Total Protein 4.6 g/dL (6.0-8.3); eGFR For African Americans > 60 (> 60); eGFR For Non-African Americans > 60 (> 60)
[2016-10-20 05:12] LABS: Phosphorous 3.8 mg/dL (2.3-4.7)
[2016-10-20] MEDS: MethylPREDNISolone 40 MG/ML VIAL IVP SCH ×2 (05:44→18:03)
[2016-10-20] MEDS: Famotidine 20 MG/2 ML VIAL IVP SCH ×2 (05:44→18:05)
[2016-10-20] MEDS: NIFEdipine XL (24 HR) 30 MG TAB.ER.24 PO SCH (09:04)
[2016-10-20] MEDS: *HR* Amiodarone 200 MG TABLET PO SCH (09:04)
[2016-10-20] MEDS: Aspirin Enteric Coated 81 MG Tablet PO SCH (09:04)
[2016-10-20] MEDS: Benzonatate 100 MG CAPSULE PO SCH ×3 (09:04→21:56)
[2016-10-20] MEDS: Aztreonam 2,000 MG in D5% in Water (Mini-Bag+) 100 ML IVPB SCH ×2 (09:05→17:59)
[2016-10-20] MEDS ORDERED: Magnesium Sulfate 2 GM in D5% in Water 100 ML IVPB ONE (09:14)
--- NOTE | 2016-10-20 14:58 | Electrocardiograph Report ---
[place] [address] Test Date: 2016-10-17 Pat Name: Ailyn Mcmahon Department: 103 Room: 2NE21 Gender: F Wrist Closer: : 1930 Requested By: Albino Clark Order Number: [id number] Reading MD: Roverto Melo MD Measurements Intervals Coleman Rate: 72 P: 84 NH: 161 QRS: 71 QRSD: 92 T: 93 QT: 375 QTc: 398 Interpretive Statements PROBABLE SINUS RHYTHM WITH BASELINE ARTIFACT Electronically Signed On 10-20-2016 14:57:00 EST by Roverto Melo MD
--- NOTE | 2016-10-20 15:41 | Internal Med Progress Note ---
<Ebenezer Coffey - Last Filed: 10/20/16 17:02> Date of Encounter: 10/20/16 Time of Encounter: 09:30 - Assessment and plan (1) HAP (hospital-acquired pneumonia) Current Visit: Yes Status: Acute Assessment and plan: Patient has been in the hospital multiple times over the past several months. HAP is the likely etiology of her hypoxia. However, must consider aspiration pneumonia as a cause as well. Patient coughs significantlly when trying to eat. Consult to speech therapy made for recommendations. White count today 18.1 Patient continues to cough significantly. She was weaned down to 6.5L high flow nasal canula. She has a productive cough with green sputum production. blood culture x2 showed no growth. Influenza A and B antigen negative. urine culture pending Lactate and ABG normal. Added Tessalon for cough. Added 40mg IV methylprednisolone BID. Stopped Levaquin, start Aztreonam, Vanc, Cipro 10/20/16 white count improved to 15.8. Continues to have cough, down to 4L nasal canula. Continue with aztreonam, vanc, cipro. Speech therapy recommended modified barium swallow during her evaluation, which was done earlier today. They recommend nectar thick and mechanically altered diet, which we will follow. Suspect that patient has been aspirating for quite some time, since her pneumonia is localized to the right side. May start diet today because her amylase/lipase levels have decreased. patient complains of RUE pain and swelling- ordered doppler to rule out DVT. (2) Leukocytosis Current Visit: Yes Status: Acute Assessment and plan: Plan as above. Qualifiers: Leukocytosis type: unspecified Qualified Code(s): D72.829 - Elevated white blood cell count, unspecified (3) Hypoxia Current Visit: Yes Status: Acute Assessment and plan: Patient came in with progressing shortness of breath. Patient recently had hernia surgery 1 month ago- concern for PE. Patient denies chest pain. CXR showed no acute cardiopulmonary disease. Unable to do CTA because of kidney function. unable to do V/Q scan because patient becomes hypoxic with little movement, cannot wean her off venti mask today. Highly suspect PE. Her WELLS score is 7- high risk category. Will prophylactically treat for PE with therapeutic lovenox (dose Q24 hours due to decreased Creatinine clearance). ABG revealed pO2 of 47- will repeat ABG tomorrow morning. Patient scheduled for V/Q scan tomorrow if she is more stable and is able to be weaned off ventimask. Order Echo- as patient is higher risk due to history of Afib. Doppler of bilateral lower extremities pending. breathing treatments Q4HR 10/19/16 Bilateral lower extremity doppler negative for DVT. Patient refused V/Q scan today- ordered CTA CTA showed no PE, but showed right lower lobe pneumonia and developing pulmonary edema- plan as #1 above. (4) Pancreatitis Current Visit: Yes Status: Acute Assessment and plan: Patient complaining of abdominal pain. CT Abdomen/Pelvis showed inflammatory changes in the region of the pancreas most pronounced in the region of the pancreatic head consistent with acute pancreatitis, and mild thickening of the wall of the stomach, which may be reactive to the pancreatitis. wall of the colon was mildly thickened. AST elevated, cholesterol levels within normal limits, Amylase 305, Lipase 521. trend amylase/lipase. NPO IVF at 175/hr pain control. 10/19/16 CTA showed bilateral pleural effusions. IVF stopped. Plan to start clear liquid diet tomorrow and advance as tolerated. 10/20 Patient's amylase and lipase back to normal levels. Plan on starting diet today pending results from barium swallow. Qualifiers: Chronicity: acute Pancreatitis type: other Acute pancreatitis complication: unspecified Qualified Code(s): K85.80 - Other acute pancreatitis without necrosis or infection (5) Atrial fibrillation Current Visit: Yes Status: Acute Assessment and plan: continue home meds Amiodarone, propanolol. Echo from 10/19 showed LVEF 65%, normal LV size and systolic function, mild diastolic dysfunction. Dilated RV from echo-suggests possible clot. Continue with therapeutic lovenox for anticoagulation while in hospital. Qualifiers: Atrial fibrillation type: paroxysmal Qualified Code(s): I48.0 - Paroxysmal atrial fibrillation (6) Hypokalemia Current Visit: Yes Status: Acute Assessment and plan: hold oral potassium. 20mEq IV potassium given today. (7) DVT prophylaxis Current Visit: Yes Status: Acute Assessment and plan: Lovenox 1mg/kg - Subjective Interval history: 86 year old female evaluated at bedside. Patient complains of dry mouth. She still continues to cough. She denies nausea, vomiting, chills. - Constitutional Vitals: Temp Pulse Resp BP Pulse Ox 97.8 F 74 18 99/67 100 10/20/16 11:56 10/20/16 11:56 10/20/16 11:56 10/20/16 11:56 10/20/16 11:56 General appearance: Present: mild distress, A&O X 3, pleasant, answers questions appropriately Exam: patient is in mild distress from continued coughing. - Head Head exam: Present: atraumatic, normocephalic - Neck Neck exam general surgery: Present: supple, trachea midline - Respiratory Additional comments: significant inspiratory and expiratory wheezing, rhonchi. - Cardiovascular Cardiovascular exam: Present: distant heart sounds - GI/Abdominal GI/Abdominal exam: Present: soft, tenderness. Absent: guarding - Extremities Exam Extremities exam: Absent: cyanotic, pedal edema - Neurological Exam Neurological exam: Present: alert, oriented X3, no focal deficits - Psychiatric Psychiatric exam: Present: anxious - Skin Additional comments: skin is very thin Internal Medicine: Result - Labs CBC & Chem 7: 10/20/16 04:07 10/20/16 04:07 Labs: Short CBC 10/20/16 Range/Units 04:07 WBC 15.8 H (4.3-11.1) K/mcL Hgb 8.8 L (11.5-15.4) g/dL Hct 27.9 L (35.3-44.9) % Plt Count 131 L (140-400) K/mcL Neutrophils # 14.6 H (1.6-8.9) K/mcL BMP 10/20/16 04:07 Sodium 135 L Potassium 3.5 Chloride 107 Carbon Dioxide 20 BUN 14 Creatinine 0.81 Glucose 127 H Calcium 7.9 L Liver Function 10/20/16 Range/Units 04:07 Total Bilirubin 0.6 (0.2-1.2) mg/dL AST 42 H (5-34) Units/L ALT 20 (0-55) Units/L Alkaline Phosphatase 101 (38-126) Units/L Albumin 2.0 L (3.5-5.0) g/dL - ABG Interpretation ABG results: ABG ABG pH 7.37 pH Units (7.32-7.45) 10/19/16 05:18 ABG pCO2 37 mmHg (35-45) 10/19/16 05:18 ABG pO2 96 mmHg (85-104) 10/19/16 05:18 ABG O2 Saturation 97 % (95-98) 10/19/16 05:18 PT/INR, D-dimer PT 14.9 Seconds (9.4-12.1) H 10/20/16 04:07 Consult Discharge Plan - Plan Referrals: Marie Valencia M.D. [Primary Care Provider] - <Steve Knox Yolanda - Last Filed: 10/20/16 18:40> Date of Encounter: 10/20/16 - Assessment and plan (1) Acute respiratory failure with hypoxia Current Visit: Yes Status: Acute (2) HAP (hospital-acquired pneumonia) Current Visit: Yes Status: Acute (3) Aspiration pneumonia Current Visit: Yes Status: Suspected Qualifiers: Aspiration pneumonia type: unspecified Laterality: right Lung location: middle lobe of lung Qualified Code(s): J69.0 - Pneumonitis due to inhalation of food and vomit (4) Pancreatitis Current Visit: Yes Status: Acute Qualifiers: Chronicity: acute Pancreatitis type: other Acute pancreatitis complication: unspecified Qualified Code(s): K85.80 - Other acute pancreatitis without necrosis or infection (5) Atrial fibrillation Current Visit: Yes Status: Acute Qualifiers: Atrial fibrillation type: paroxysmal Qualified Code(s): I48.0 - Paroxysmal atrial fibrillation (6) Hypokalemia Current Visit: Yes Status: Acute (7) Leukocytosis Current Visit: Yes Status: Acute Qualifiers: Leukocytosis type: unspecified Qualified Code(s): D72.829 - Elevated white blood cell count, unspecified (8) Hypomagnesemia Current Visit: Yes Status: Acute Assessment and plan: Replace today. (9) Dysphagia Current Visit: Yes Status: Acute Assessment and plan: Modified diet ordered Qualifiers: Dysphagia type: oropharyngeal phase Qualified Code(s): R13.12 - Dysphagia, oropharyngeal phase - Constitutional Vitals: Temp Pulse Resp BP Pulse Ox 98.2 F 72 16 105/48 95 10/20/16 17:27 10/20/16 17:27 10/20/16 17:27 10/20/16 17:27 10/20/16 17:27 Internal Medicine: Result - Labs CBC & Chem 7: 10/20/16 04:07 10/20/16 04:07 Labs: Short CBC 10/20/16 Range/Units 04:07 WBC 15.8 H (4.3-11.1) K/mcL Hgb 8.8 L (11.5-15.4) g/dL Hct 27.9 L (35.3-44.9) % Plt Count 131 L (140-400) K/mcL Neutrophils # 14.6 H (1.6-8.9) K/mcL BMP 10/20/16 04:07 Sodium 135 L Potassium 3.5 Chloride 107 Carbon Dioxide 20 BUN 14 Creatinine 0.81 Glucose 127 H Calcium 7.9 L Liver Function 10/20/16 Range/Units 04:07 Total Bilirubin 0.6 (0.2-1.2) mg/dL AST 42 H (5-34) Units/L ALT 20 (0-55) Units/L Alkaline Phosphatase 101 (38-126) Units/L Albumin 2.0 L (3.5-5.0) g/dL - ABG Interpretation ABG results: ABG ABG pH 7.37 pH Units (7.32-7.45) 10/19/16 05:18 ABG pCO2 37 mmHg (35-45) 10/19/16 05:18 ABG pO2 96 mmHg (85-104) 10/19/16 05:18 ABG O2 Saturation 97 % (95-98) 10/19/16 05:18 PT/INR, D-dimer PT 14.9 Seconds (9.4-12.1) H 10/20/16 04:07 - Impressions Impressions Videofluoroscopic Swallow 10/20/16 09:26 IMPRESSION: Brief penetration without aspiration from all consistencies of liquids administered. Please see separate speech pathology report for full discussion of findings and recommendations. D/ / Errol Vargas MD / Errol Vargas MD Interpreting Provider: Errol Vargas MD - Attending Attestation I examined this patient and my medical decision-making was reviewed with the Resident Physician on 10/20/16. I agree with the documented findings, disposition and treatment plan as described except to the extent set forth below. Ms. Mcmahonis currently admitted for acute hypoxic resp failure due to aspiration pneumonia. She remains moderate to high risk due to potential for worsening respiratory status. Ms. Mcmahon feels better today. Abx had been changed yesterday. Speech eval today. No fever. No GI symptoms. Exam Alert. Comfortable Heart irreg Lungs with wheeze and rhonchi I/P 1. Probable aspr pneumonia 2. Dypshagia 3. Hypoxia Further diagnoses and plan as above.
[2016-10-20] MEDS ORDERED: Potassium Chloride 20 MEQ, Lidocaine 1% 2 ML in D5% in Water 250 ML IVPB ONE (15:46)
[2016-10-20] MEDS ORDERED: Vancomycin 500 MG in D5% in Water (Mini-Bag+) 100 ML IVPB SCH (17:00)
[2016-10-20] MEDS: *HR* Enoxaparin 60 MG/0.6 ML SYRINGE SQ SCH (18:05)
[2016-10-21] MEDS: Aztreonam 2,000 MG in D5% in Water (Mini-Bag+) 100 ML IVPB SCH ×4 (01:36→23:33)
[2016-10-21 05:16] LABS: INR 1.3; Prothrombin Time 14.3 Seconds (9.4-12.1)
[2016-10-21 05:18] LABS: Activated Partial Thrombo Time 37.5 Seconds (26.0-36.0)
[2016-10-21 05:19] LABS: Basophils % 0.1 %; Hematocrit 27.6 % (35.3-44.9); Hemoglobin 8.7 g/dL (11.5-15.4); Immature Granulocytes % 2.1 % (0-4); Lymphocytes # 0.8 K/mcL (0.6-4.6); Mean Corpuscular HGB Conc 31.5 g/dL (31.6-35.5); Mean Corpuscular Hemoglobin 30.4 pg (28.0-33.3); Mean Corpuscular Volume 96.5 fL (83.0-100.0); Mean Platelet Volume 10.6 fL (9.4-12.4); Monocytes # 0.6 K/mcL (0.0-1.3); Monocytes % 3.4 %; Neutrophils # 14.4 K/mcL (1.6-8.9); Platelet Count 155 K/mcL (140-400); Red Blood Count 2.86 M/mcL (3.82-4.97); Segmented Neutrophils % 89.4 %
[2016-10-21 05:41] LABS: Alanine Aminotransferase 21 Units/L (0-55); Albumin 2.1 g/dL (3.5-5.0); Albumin/Globulin Ratio 0.8 (1.1-2.2); Alkaline Phosphatase 122 Units/L (38-126); Amylase 57 Units/L (25-125); Aspartate Amino Transferase 35 Units/L (5-34); BUN/Creatinine Ratio 22 (6-26); Bilirubin,Total 0.5 mg/dL (0.2-1.2); Blood Urea Nitrogen 20 mg/dL (7-20); Calcium 8.3 mg/dL (8.6-10.8); Carbon Dioxide 20 mEq/L (19-29); Chloride 106 mEq/L (98-109); Globulin 2.8 g/dL (2.4-3.5); Glucose 116 mg/dL (70-99); Lipase 93 Units/L (8-78); Magnesium 1.6 mg/dL (1.6-2.6); Osmolality,Calculated 282 (280-300); Phosphorous 2.3 mg/dL (2.3-4.7); Potassium 3.5 mEq/L (3.5-4.5); Sodium 134 mEq/L (136-145); Total Protein 4.9 g/dL (6.0-8.3); eGFR For African Americans > 60 (> 60); eGFR For Non-African Americans 59 (> 60)
[2016-10-21] MEDS: Famotidine 20 MG/2 ML VIAL IVP SCH ×2 (06:22→17:29)
[2016-10-21] MEDS: MethylPREDNISolone 40 MG/ML VIAL IVP SCH ×2 (06:23→17:29)
[2016-10-21] MEDS: *HR* Enoxaparin 60 MG/0.6 ML SYRINGE SQ SCH ×2 (06:28→17:29)
[2016-10-21] MEDS ORDERED: Aminoglycoside Consult 1 EACH MC ONE (09:08)
[2016-10-21] MEDS: *HR* Amiodarone 200 MG TABLET PO SCH (09:10)
[2016-10-21] MEDS: Benzonatate 100 MG CAPSULE PO SCH ×3 (09:10→20:28)
[2016-10-21] MEDS: NIFEdipine XL (24 HR) 30 MG TAB.ER.24 PO SCH (09:10)
[2016-10-21] MEDS: Aspirin Enteric Coated 81 MG Tablet PO SCH (09:10)
[2016-10-21] MEDS: Potassium Chloride 20 MEQ, Lidocaine 1% 2 ML in D5% in Water 250 ML IVPB ONE ×2 (09:13→14:27)
--- NOTE | 2016-10-21 12:05 | Venous Imaging Report ---
LE Venous Duplex Patient Name:Ailyn Mcmahon Order Number:[id number] Procedure Date:10/19/2016 Date:1930ge:86 yrs Gender:Female Location:[facility] Room #: 2ne21 [employer] Farmworker:Dudley Pandey RDCS Referring MD:Ebenezer Coffey DO geospatial image analyst:None Reading MD:Aung Julien MD Primary Indications:Swelling of limb Secondary Indications: Impressions: Normal bilateral lower extremity deep and superficial venous exam. Findings Venous Duplex Results: Right: Venous imaging of the lower extremity reveals full patency and normal vessel compressibility of the right distal iliac, right common femoral, right superficial femoral, right popliteal, right posterior tibial, right saphenofemoral junction and right great saphenous. Doppler signals in the evaluated veins were normal. LSV not visualized. Left: Venous imaging of the lower extremity reveals full patency and normal vessel compressibility of the left distal iliac, left common femoral, left superficial femoral, left popliteal, left posterior tibial, left peroneal, left saphenofemoral junction and left great saphenous. Doppler signals in the evaluated veins were normal. Peroneals not visualized. LSV not visualized. Prior Study: No prior study available for comparison. Lower Extremity Venous Duplex Side Vein Compress Spontaneous Flow Augment Diameter (cm) Depth (cm) Right Common Femoral Normal Yes Phasic Yes Right Superficial Femoral Normal Yes Phasic Yes Right Popliteal Normal Yes Phasic Yes Right Posterior Tibial Normal Yes Phasic Yes Right Saphenofemoral Junction Normal Yes Phasic Yes Right Great Saphenous Normal Yes Phasic Yes Left Distal Iliac Normal Yes Phasic Yes Left Common Femoral Normal Yes Phasic Yes Left Superficial Femoral Normal Yes Phasic Yes Left Popliteal Normal Yes Phasic Yes Left Posterior Tibial Normal Yes Phasic Yes Left Peroneal Normal Yes Phasic Yes Left Saphenofemoral Junction Normal Yes Phasic Yes Left Great Saphenous Normal Yes Phasic Yes Right Distal Iliac Normal Yes Phasic Yes Updated by Aung Julien MD on 10/21/2016 11:58:42 AM electronically signed on 10/21/2016 11:58:54 AM with status of Final
[2016-10-21] MEDS ORDERED: Dextromethorphan Polistrx(12h) 30 MG/5 ML UDC PO PRN (13:06)
--- NOTE | 2016-10-21 13:14 | Venous Imaging Report ---
UE Venous Duplex Patient Name:Ailyn Mcmahon Order Number:[id number] Procedure Date:10/20/2016 Date:1930ge:86 yrs Gender:Female Location:[facility] Room #: 2NE21 [place]ist[place] Joiner Overlock:Daina Jauregui Referring MD:Ebenezer Coffey DO developer analyst:None Reading MD:Zeke Albert MD , FACS Primary Indications:r/o DVT Secondary Indications: Risk Factors Yes/No Hx of DVT Recent fall Impressions: Upper extremity abnormal superficial exam: right Cephalic Forearm vein acute thrombosis. Right upper extremity: normal deep exam. Left upper extremity: normal contralateral exam. Recommendations: Test completed on 10/20/2016 at 10:45:00 pm. Critical findings reported to Indu Arita RN by phone at 11:00:00 pm on 10/20/2016 by Diana Jauregui. Findings Venous Duplex Results: Right: There is an acute occlusive thrombus seen in the right cephalic forearm. Prior Study: No prior study available for comparison. Upper Extremity Venous Duplex Side Vein Compress Spontaneous Flow Augment Right Jugular Normal Yes Phasic Yes Right Subclavian Normal Yes Phasic Yes Right Axillary Normal Yes Phasic Yes Right Brachial Normal Yes Phasic Yes Right Cephalic Upper Arm Normal Yes Phasic Yes Right Cephalic Forearm None no Absent no Right Basilic Upper Arm Normal Yes Phasic Yes Right Basilic Forearm Normal Yes Phasic Yes Right Radial Normal Yes Phasic Yes Right Ulnar Normal Yes Phasic Yes Left Subclavian Normal Yes Phasic Yes Updated by Zeke Albert MD, FACS on 10/21/2016 1:09:14 PM Zeke Albert MD electronically signed on 10/21/2016 1:09:49 PM with status of Final
--- NOTE | 2016-10-21 14:33 | Internal Med Progress Note ---
<Ebenezer Coffey - Last Filed: 10/21/16 15:00> Date of Encounter: 10/21/16 Time of Encounter: 09:45 - Assessment and plan (1) HAP (hospital-acquired pneumonia) Current Visit: Yes Status: Acute Assessment and plan: Patient has been in the hospital multiple times over the past several months. HAP is the likely etiology of her hypoxia. However, must consider aspiration pneumonia as a cause as well. Patient coughs significantlly when trying to eat. Consult to speech therapy made for recommendations. White count today 18.1 Patient continues to cough significantly. She was weaned down to 6.5L high flow nasal canula. She has a productive cough with green sputum production. blood culture x2 showed no growth. Influenza A and B antigen negative. urine culture pending Lactate and ABG normal. Added Tessalon for cough. Added 40mg IV methylprednisolone BID. Stopped Levaquin, start Aztreonam, Vanc, Cipro 10/20/16 white count improved to 15.8. Continues to have cough, down to 4L nasal canula. Continue with aztreonam, vanc, cipro. Speech therapy recommended modified barium swallow during her evaluation, which was done earlier today. They recommend nectar thick and mechanically altered diet, which we will follow. Suspect that patient has been aspirating for quite some time, since her pneumonia is localized to the right side. May start diet today because her amylase/lipase levels have decreased. patient complains of RUE pain and swelling- ordered doppler to rule out DVT. 10/21/16 white count today 16.1. COntinue with vanc, Aztreonam, Cipro. Patient is off oxygen currently and continuing to improve. Per speech therapy recommendations, she will be on mechanically altered diet with thin liquids. RUE doppler from yesterday showed superficial vein acute thrombosis. Continue with therapeutic lovenox. Patient and her daughter are complaining that they are not satisfied with the level of care they are receiving at the hospital. They would like to be transferred to [facility]. However, she was not accepted there after we called because it is not a higher level of care. Patient's daughter was also upset because patient's IV went bad yesterday and they had multiple attempts to place another one with no success. They wanted to leave AMA this morning. This afternoon, PICC team placed peripheral IV today successfully. Patient will stay in the hospital for now and will continue to receive IV antibiotics. (2) Anemia Current Visit: Yes Status: Chronic Assessment and plan: When patient was admitted to the hospital, her Hg was 10.3. Today Hg was 8.7. THis may partly be dilutional from all the fluids she has received. However, there is some concern for blood loss. Will monitor H&H. Iron profile, B12, folate levels will be checked with morning labs. Stool guiac pending. Qualifiers: Anemia type: unspecified type Qualified Code(s): D64.9 - Anemia, unspecified (3) Leukocytosis Current Visit: Yes Status: Acute Assessment and plan: Plan as above. Qualifiers: Leukocytosis type: unspecified Qualified Code(s): D72.829 - Elevated white blood cell count, unspecified (4) Hypoxia Current Visit: Yes Status: Acute Assessment and plan: Patient came in with progressing shortness of breath. Patient recently had hernia surgery 1 month ago- concern for PE. Patient denies chest pain. CXR showed no acute cardiopulmonary disease. Unable to do CTA because of kidney function. unable to do V/Q scan because patient becomes hypoxic with little movement, cannot wean her off venti mask today. Highly suspect PE. Her WELLS score is 7- high risk category. Will prophylactically treat for PE with therapeutic lovenox (dose Q24 hours due to decreased Creatinine clearance). ABG revealed pO2 of 47- will repeat ABG tomorrow morning. Patient scheduled for V/Q scan tomorrow if she is more stable and is able to be weaned off ventimask. Order Echo- as patient is higher risk due to history of Afib. Doppler of bilateral lower extremities pending. breathing treatments Q4HR 10/19/16 Bilateral lower extremity doppler negative for DVT. Patient refused V/Q scan today- ordered CTA CTA showed no PE, but showed right lower lobe pneumonia and developing pulmonary edema- plan as #1 above. 10/21/16 Patient continuing to clinically improve. She is currentlly not oxygen dependent. (5) Pancreatitis Current Visit: Yes Status: Acute Assessment and plan: Patient complaining of abdominal pain. CT Abdomen/Pelvis showed inflammatory changes in the region of the pancreas most pronounced in the region of the pancreatic head consistent with acute pancreatitis, and mild thickening of the wall of the stomach, which may be reactive to the pancreatitis. wall of the colon was mildly thickened. AST elevated, cholesterol levels within normal limits, Amylase 305, Lipase 521. trend amylase/lipase. NPO IVF at 175/hr pain control. 10/19/16 CTA showed bilateral pleural effusions. IVF stopped. Plan to start clear liquid diet tomorrow and advance as tolerated. 10/20 Patient's amylase and lipase back to normal levels. Plan on starting diet today pending results from barium swallow. 10/21/16 Continue with mechanically altered diet with thin liquids, as recommended by speech therapy. Qualifiers: Chronicity: acute Pancreatitis type: other Acute pancreatitis complication: unspecified Qualified Code(s): K85.80 - Other acute pancreatitis without necrosis or infection (6) Atrial fibrillation Current Visit: Yes Status: Acute Assessment and plan: continue home meds Amiodarone, propanolol. Echo from 10/19 showed LVEF 65%, normal LV size and systolic function, mild diastolic dysfunction. Dilated RV from echo-suggests possible clot. Continue with therapeutic lovenox for anticoagulation while in hospital. Qualifiers: Atrial fibrillation type: paroxysmal Qualified Code(s): I48.0 - Paroxysmal atrial fibrillation (7) Hypokalemia Current Visit: Yes Status: Acute Assessment and plan: hold oral potassium. Potassium 3.5 today. Will give 20mEq IV (8) DVT prophylaxis Current Visit: Yes Status: Acute Assessment and plan: Lovenox 1mg/kg - Subjective Interval history: 86 year old female evaluated at bedside. Patient is talking about leaving AMA today because she is not satisfied with the level of care she has been receiving here. She was on 2L oxygen this morning and continuing to improve. - Constitutional Vitals: Temp Pulse Resp BP Pulse Ox 97.5 F L 78 16 128/60 98 10/21/16 07:00 10/21/16 11:30 10/21/16 11:30 10/21/16 11:30 10/21/16 11:30 General appearance: Present: A&O X 3, pleasant, answers questions appropriately Exam: patient appears upset, but clinically she seems improved because her cough is significantly less than it was yesterday. - Head Head exam: Present: atraumatic, normocephalic - Neck Neck exam general surgery: Present: supple, trachea midline - Respiratory Respiratory exam: Present: rhonchi, wheezes Additional comments: high pitched wheezes and rhonchi present. - Cardiovascular Cardiovascular exam: Present: irregular rhythm - GI/Abdominal GI/Abdominal exam: Present: normal bowel sounds, soft, tenderness. Absent: distended - Extremities Exam Extremities exam: Absent: cyanotic, pedal edema - Neurological Exam Neurological exam: Present: alert, oriented X3 - Psychiatric Psychiatric exam: Present: anxious, depressed Internal Medicine: Result - Labs CBC & Chem 7: 10/21/16 04:44 10/21/16 04:44 Labs: Short CBC 10/21/16 Range/Units 04:44 WBC 16.1 H (4.3-11.1) K/mcL Hgb 8.7 L (11.5-15.4) g/dL Hct 27.6 L (35.3-44.9) % Plt Count 155 (140-400) K/mcL Neutrophils # 14.4 H (1.6-8.9) K/mcL BMP 10/21/16 04:44 Sodium 134 L Potassium 3.5 Chloride 106 Carbon Dioxide 20 BUN 20 Creatinine 0.91 Glucose 116 H Calcium 8.3 L Liver Function 10/21/16 Range/Units 04:44 Total Bilirubin 0.5 (0.2-1.2) mg/dL AST 35 H (5-34) Units/L ALT 21 (0-55) Units/L Alkaline Phosphatase 122 (38-126) Units/L Albumin 2.1 L (3.5-5.0) g/dL - ABG Interpretation ABG results: ABG ABG pH 7.37 pH Units (7.32-7.45) 10/19/16 05:18 ABG pCO2 37 mmHg (35-45) 10/19/16 05:18 ABG pO2 96 mmHg (85-104) 10/19/16 05:18 ABG O2 Saturation 97 % (95-98) 10/19/16 05:18 PT/INR, D-dimer PT 14.3 Seconds (9.4-12.1) H 10/21/16 04:44 - Impressions Impressions Videofluoroscopic Swallow 10/20/16 09:26 IMPRESSION: Brief penetration without aspiration from all consistencies of liquids administered. Please see separate speech pathology report for full discussion of findings and recommendations. D/ / Errol Vargas MD / Errol Vargas MD Interpreting Provider: Errol Vargas MD Consult Discharge Plan - Plan Referrals: Marie Valencia M.D. [Primary Care Provider] - <Steve Knox - Last Filed: 10/21/16 19:10> Date of Encounter: 10/21/16 - Assessment and plan (1) Acute respiratory failure with hypoxia Current Visit: Yes Status: Acute Assessment and plan: Wean oxygen as able. (2) HAP (hospital-acquired pneumonia) Current Visit: Yes Status: Acute (3) Aspiration pneumonia Current Visit: Yes Status: Suspected Qualifiers: Aspiration pneumonia type: unspecified Laterality: right Lung location: middle lobe of lung Qualified Code(s): J69.0 - Pneumonitis due to inhalation of food and vomit (4) Pancreatitis Current Visit: Yes Status: Acute Qualifiers: Chronicity: acute Pancreatitis type: other Acute pancreatitis complication: unspecified Qualified Code(s): K85.80 - Other acute pancreatitis without necrosis or infection (5) Atrial fibrillation Current Visit: Yes Status: Acute Qualifiers: Atrial fibrillation type: paroxysmal Qualified Code(s): I48.0 - Paroxysmal atrial fibrillation (6) Hypokalemia Current Visit: Yes Status: Acute (7) Leukocytosis Current Visit: Yes Status: Acute Qualifiers: Leukocytosis type: unspecified Qualified Code(s): D72.829 - Elevated white blood cell count, unspecified (8) Hypomagnesemia Current Visit: Yes Status: Acute (9) Dysphagia Current Visit: Yes Status: Acute Qualifiers: Dysphagia type: oropharyngeal phase Qualified Code(s): R13.12 - Dysphagia, oropharyngeal phase - Constitutional Vitals: Temp Pulse Resp BP Pulse Ox 97.6 F 79 14 116/59 95 10/21/16 15:59 10/21/16 15:59 10/21/16 15:59 10/21/16 15:59 10/21/16 15:59 Internal Medicine: Result - Labs CBC & Chem 7: 10/21/16 04:44 10/21/16 04:44 Labs: Short CBC 10/21/16 Range/Units 04:44 WBC 16.1 H (4.3-11.1) K/mcL Hgb 8.7 L (11.5-15.4) g/dL Hct 27.6 L (35.3-44.9) % Plt Count 155 (140-400) K/mcL Neutrophils # 14.4 H (1.6-8.9) K/mcL BMP 10/21/16 04:44 Sodium 134 L Potassium 3.5 Chloride 106 Carbon Dioxide 20 BUN 20 Creatinine 0.91 Glucose 116 H Calcium 8.3 L Liver Function 10/21/16 Range/Units 04:44 Total Bilirubin 0.5 (0.2-1.2) mg/dL AST 35 H (5-34) Units/L ALT 21 (0-55) Units/L Alkaline Phosphatase 122 (38-126) Units/L Albumin 2.1 L (3.5-5.0) g/dL - ABG Interpretation ABG results: ABG ABG pH 7.37 pH Units (7.32-7.45) 10/19/16 05:18 ABG pCO2 37 mmHg (35-45) 10/19/16 05:18 ABG pO2 96 mmHg (85-104) 10/19/16 05:18 ABG O2 Saturation 97 % (95-98) 10/19/16 05:18 PT/INR, D-dimer PT 14.3 Seconds (9.4-12.1) H 10/21/16 04:44 - Attending Attestation I examined this patient and my medical decision-making was reviewed with the Resident Physician on 10/21/16. I agree with the documented findings, disposition and treatment plan as described except to the extent set forth below. Ms. Mcmahon is currently admitted for acute hypoxic resp failure due to asp pneumonia and acute pancreatitis. She remains moderate to high risk due to potential for worsening respiratory status. Ms. Mmcahon is upset about coughing and IV sticks. She wants to be transferred to [facility]. No pain. She is able to be off oxygen this afternoon. Exam Alert. Mild resp distress at rest Heart irreg Rhonchi present I/P 1. Hypoxic resp failure 2. Asp pneumonia 3. Dysphagia Further diagnoses and plan as above I called [facility] and they will only take her in transfer if for higher care or related to her prior surgery. She agreed to let IV team put in powerglide for IV abx.
[2016-10-21] MEDS ORDERED: Vancomycin 1,000 MG in D5% in Water 250 ML IVPB SCH (17:00)
[2016-10-21] MEDS: GuaiFENesin Liq 200 MG/10 ML UDC PO PRN (23:33)
[2016-10-22] MEDS: *HR* Enoxaparin 60 MG/0.6 ML SYRINGE SQ SCH ×2 (06:35→18:34)
[2016-10-22] MEDS: Famotidine 20 MG/2 ML VIAL IVP SCH ×2 (06:35→18:35)
[2016-10-22] MEDS: MethylPREDNISolone 40 MG/ML VIAL IVP SCH (06:35)
[2016-10-22] MEDS: Aspirin Enteric Coated 81 MG Tablet PO SCH (08:01)
[2016-10-22] MEDS: NIFEdipine XL (24 HR) 30 MG TAB.ER.24 PO SCH (08:01)
[2016-10-22] MEDS: Benzonatate 100 MG CAPSULE PO SCH ×3 (08:02→21:14)
[2016-10-22] MEDS: *HR* Amiodarone 200 MG TABLET PO SCH (08:02)
[2016-10-22] MEDS: Aztreonam 2,000 MG in D5% in Water (Mini-Bag+) 100 ML IVPB SCH ×2 (08:03→15:58)
[2016-10-22 08:38] LABS: Basophils % 0.1 %; Hematocrit 27.2 % (35.3-44.9); Hemoglobin 8.7 g/dL (11.5-15.4); Immature Granulocytes % 1.1 % (0-4); Lymphocytes # 0.8 K/mcL (0.6-4.6); Lymphocytes % 7.6 %; Mean Corpuscular Hemoglobin 30.9 pg (28.0-33.3); Mean Corpuscular Volume 96.5 fL (83.0-100.0); Mean Platelet Volume 11.3 fL (9.4-12.4); Monocytes # 0.6 K/mcL (0.0-1.3); Monocytes % 6.4 %; Neutrophils # 8.4 K/mcL (1.6-8.9); Platelet Count 107 K/mcL (140-400); Red Blood Count 2.82 M/mcL (3.82-4.97); Segmented Neutrophils % 84.8 %
[2016-10-22 11:00] LABS: % Iron Saturation 26 % (15-50); Iron 40 mcg/dL (50-170); Transferrin 112 mg/dL (180-382)
[2016-10-22 11:22] LABS: Folate 2.3 ng/mL (7.0-31.4)
--- NOTE | 2016-10-22 11:51 | Internal Med Progress Note ---
<Ebenezer Coffey - Last Filed: 10/22/16 11:49> Date of Encounter: 10/22/16 Time of Encounter: 09:30 - Assessment and plan (1) HAP (hospital-acquired pneumonia) Current Visit: Yes Status: Acute Assessment and plan: Patient has been in the hospital multiple times over the past several months. HAP is the likely etiology of her hypoxia. However, must consider aspiration pneumonia as a cause as well. Patient coughs significantlly when trying to eat. Consult to speech therapy made for recommendations. White count today 18.1 Patient continues to cough significantly. She was weaned down to 6.5L high flow nasal canula. She has a productive cough with green sputum production. blood culture x2 showed no growth. Influenza A and B antigen negative. urine culture pending Lactate and ABG normal. Added Tessalon for cough. Added 40mg IV methylprednisolone BID. Stopped Levaquin, start Aztreonam, Vanc, Cipro 10/20/16 white count improved to 15.8. Continues to have cough, down to 4L nasal canula. Continue with aztreonam, vanc, cipro. Speech therapy recommended modified barium swallow during her evaluation, which was done earlier today. They recommend nectar thick and mechanically altered diet, which we will follow. Suspect that patient has been aspirating for quite some time, since her pneumonia is localized to the right side. May start diet today because her amylase/lipase levels have decreased. patient complains of RUE pain and swelling- ordered doppler to rule out DVT. 10/21/16 white count today 16.1. COntinue with vanc, Aztreonam, Cipro. Patient is off oxygen currently and continuing to improve. Per speech therapy recommendations, she will be on mechanically altered diet with thin liquids. RUE doppler from yesterday showed superficial vein acute thrombosis. Continue with therapeutic lovenox. Patient and her daughter are complaining that they are not satisfied with the level of care they are receiving at the hospital. They would like to be transferred to [facility]. However, she was not accepted there after we called because it is not a higher level of care. Patient's daughter was also upset because patient's IV went bad yesterday and they had multiple attempts to place another one with no success. They wanted to leave AMA this morning. This afternoon, PICC team placed peripheral IV today successfully. Patient will stay in the hospital for now and will continue to receive IV antibiotics. 10/22 patient is drastically improved since admission. not oxygen dependent. lung sounds significant for mild wheezing, but much improvement. will continue vanc, cipro, aztreonam steroids decreased to 40mg once a day. (2) Anemia Current Visit: Yes Status: Chronic Assessment and plan: When patient was admitted to the hospital, her Hg was 10.3. Today Hg was 8.7. THis may partly be dilutional from all the fluids she has received. However, there is some concern for blood loss. Will monitor H&H. Iron profile, B12, folate levels will be checked with morning labs. Stool guiac pending. 10/22 stool guiac pending. low iron Hg 8.7 patient is chronically anemic. B12 and folate levels normal. will give IV iron infusion today, as patient gets this at home. Qualifiers: Anemia type: unspecified type Qualified Code(s): D64.9 - Anemia, unspecified (3) Leukocytosis Current Visit: Yes Status: Resolved Assessment and plan: Plan as above. Qualifiers: Leukocytosis type: unspecified Qualified Code(s): D72.829 - Elevated white blood cell count, unspecified (4) Hypoxia Current Visit: Yes Status: Resolved Assessment and plan: Patient came in with progressing shortness of breath. Patient recently had hernia surgery 1 month ago- concern for PE. Patient denies chest pain. CXR showed no acute cardiopulmonary disease. Unable to do CTA because of kidney function. unable to do V/Q scan because patient becomes hypoxic with little movement, cannot wean her off venti mask today. Highly suspect PE. Her WELLS score is 7- high risk category. Will prophylactically treat for PE with therapeutic lovenox (dose Q24 hours due to decreased Creatinine clearance). ABG revealed pO2 of 47- will repeat ABG tomorrow morning. Patient scheduled for V/Q scan tomorrow if she is more stable and is able to be weaned off ventimask. Order Echo- as patient is higher risk due to history of Afib. Doppler of bilateral lower extremities pending. breathing treatments Q4HR 10/19/16 Bilateral lower extremity doppler negative for DVT. Patient refused V/Q scan today- ordered CTA CTA showed no PE, but showed right lower lobe pneumonia and developing pulmonary edema- plan as #1 above. 10/21/16 Patient continuing to clinically improve. She is currentlly not oxygen dependent. (5) Pancreatitis Current Visit: Yes Status: Resolved Assessment and plan: Patient complaining of abdominal pain. CT Abdomen/Pelvis showed inflammatory changes in the region of the pancreas most pronounced in the region of the pancreatic head consistent with acute pancreatitis, and mild thickening of the wall of the stomach, which may be reactive to the pancreatitis. wall of the colon was mildly thickened. AST elevated, cholesterol levels within normal limits, Amylase 305, Lipase 521. trend amylase/lipase. NPO IVF at 175/hr pain control. 10/19/16 CTA showed bilateral pleural effusions. IVF stopped. Plan to start clear liquid diet tomorrow and advance as tolerated. 10/20 Patient's amylase and lipase back to normal levels. Plan on starting diet today pending results from barium swallow. 10/21/16 Continue with mechanically altered diet with thin liquids, as recommended by speech therapy. Qualifiers: Chronicity: acute Pancreatitis type: other Acute pancreatitis complication: unspecified Qualified Code(s): K85.80 - Other acute pancreatitis without necrosis or infection (6) Atrial fibrillation Current Visit: Yes Status: Acute Assessment and plan: continue home meds Amiodarone, propanolol. Echo from 10/19 showed LVEF 65%, normal LV size and systolic function, mild diastolic dysfunction. Dilated RV from echo-suggests possible clot. Continue with therapeutic lovenox for anticoagulation while in hospital. Qualifiers: Atrial fibrillation type: paroxysmal Qualified Code(s): I48.0 - Paroxysmal atrial fibrillation (7) Hypokalemia Current Visit: Yes Status: Resolved (8) DVT prophylaxis Current Visit: Yes Status: Acute Assessment and plan: Lovenox 1mg/kg - Subjective Interval history: 86 year old female evaluated at bedside. patient denies nausea, vomiting, shortness of breath. she is no longer requiring any supplemental oxygen and is clinically improved significantly. - Constitutional Vitals: Temp Pulse Resp BP Pulse Ox 99.1 F 75 16 153/88 97 10/22/16 07:36 10/22/16 07:36 10/22/16 07:36 10/22/16 07:36 10/22/16 07:36 General appearance: Present: A&O X 3, pleasant, answers questions appropriately - Head Head exam: Present: atraumatic, normocephalic - Neck Neck exam general surgery: Present: supple, trachea midline - Respiratory Respiratory exam: Present: wheezes Additional comments: mild inspiratory and expiratory wheezing, drastically improved compared to admission. decreased right lower lobe breath sounds. - Cardiovascular Cardiovascular exam: Present: RRR, +S1, +S2 - GI/Abdominal GI/Abdominal exam: Present: normal bowel sounds, tenderness Additional comments: colostomy present. - Extremities Exam Extremities exam: Absent: cyanotic, pedal edema - Neurological Exam Neurological exam: Present: alert, oriented X3 - Psychiatric Psychiatric exam: Present: normal affect, normal mood Internal Medicine: Result - Labs CBC & Chem 7: 10/22/16 08:14 10/21/16 04:44 Labs: Short CBC 10/22/16 Range/Units 08:14 WBC 9.9 (4.3-11.1) K/mcL Hgb 8.7 L (11.5-15.4) g/dL Hct 27.2 L (35.3-44.9) % Plt Count 107 L (140-400) K/mcL Neutrophils # 8.4 (1.6-8.9) K/mcL - ABG Interpretation ABG results: ABG ABG pH 7.37 pH Units (7.32-7.45) 10/19/16 05:18 ABG pCO2 37 mmHg (35-45) 10/19/16 05:18 ABG pO2 96 mmHg (85-104) 10/19/16 05:18 ABG O2 Saturation 97 % (95-98) 10/19/16 05:18 PT/INR, D-dimer PT 14.3 Seconds (9.4-12.1) H 10/21/16 04:44 Consult Discharge Plan - Plan Referrals: Marie Valencia M.D. [Primary Care Provider] - 10/29/16 1:15 pm <Steve nKox - Last Filed: 10/22/16 15:09> Date of Encounter: 10/22/16 - Assessment and plan (1) Acute respiratory failure with hypoxia Current Visit: Yes Status: Acute (2) HAP (hospital-acquired pneumonia) Current Visit: Yes Status: Acute (3) Aspiration pneumonia Current Visit: Yes Status: Suspected Qualifiers: Aspiration pneumonia type: unspecified Laterality: right Lung location: middle lobe of lung Qualified Code(s): J69.0 - Pneumonitis due to inhalation of food and vomit (4) Pancreatitis Current Visit: Yes Status: Resolved Qualifiers: Chronicity: acute Pancreatitis type: other Acute pancreatitis complication: unspecified Qualified Code(s): K85.80 - Other acute pancreatitis without necrosis or infection (5) Atrial fibrillation Current Visit: Yes Status: Acute Qualifiers: Atrial fibrillation type: paroxysmal Qualified Code(s): I48.0 - Paroxysmal atrial fibrillation (6) Hypokalemia Current Visit: Yes Status: Resolved (7) Leukocytosis Current Visit: Yes Status: Resolved Qualifiers: Leukocytosis type: unspecified Qualified Code(s): D72.829 - Elevated white blood cell count, unspecified (8) Hypomagnesemia Current Visit: Yes Status: Acute (9) Dysphagia Current Visit: Yes Status: Acute Qualifiers: Dysphagia type: oropharyngeal phase Qualified Code(s): R13.12 - Dysphagia, oropharyngeal phase - Constitutional Vitals: Temp Pulse Resp BP Pulse Ox 98 F 80 16 165/88 99 10/22/16 12:09 10/22/16 12:09 10/22/16 12:09 10/22/16 12:09 10/22/16 12:09 Internal Medicine: Result - Labs CBC & Chem 7: 10/22/16 08:14 10/22/16 08:14 Labs: Short CBC 10/22/16 Range/Units 08:14 WBC 9.9 (4.3-11.1) K/mcL Hgb 8.7 L (11.5-15.4) g/dL Hct 27.2 L (35.3-44.9) % Plt Count 107 L (140-400) K/mcL Neutrophils # 8.4 (1.6-8.9) K/mcL BMP 10/22/16 08:14 Sodium 133 L Potassium 3.8 Chloride 104 Carbon Dioxide 20 BUN 20 Creatinine 0.84 Glucose 112 H Calcium 7.9 L - ABG Interpretation ABG results: ABG ABG pH 7.37 pH Units (7.32-7.45) 10/19/16 05:18 ABG pCO2 37 mmHg (35-45) 10/19/16 05:18 ABG pO2 96 mmHg (85-104) 10/19/16 05:18 ABG O2 Saturation 97 % (95-98) 10/19/16 05:18 PT/INR, D-dimer PT 14.3 Seconds (9.4-12.1) H 10/21/16 04:44 - Attending Attestation I examined this patient and my medical decision-making was reviewed with the Resident Physician on 10/22/16. I agree with the documented findings, disposition and treatment plan as described except to the extent set forth below. Ms. Mcmahon is currently admitted for acute hypoxic resp failure and presumed aspiration pneumonia. She remains moderate to high risk due to potential for worsening respiratory status. Ms. Mcmahon is feeling a little better today. She is now off oxygen. Less coughing today. No fever. No GI symptoms. Has been eating better. Exam Alert. Comfortable Heart irreg - not tachy Lungs with less congestion and rhonchi today. I/P 1. Hypoxic resp failure 2. Probable asp pneumonia Further diagnoses and plan as above.
[2016-10-22 11:52] LABS: BUN/Creatinine Ratio 24 (6-26); Blood Urea Nitrogen 20 mg/dL (7-20); Calcium 7.9 mg/dL (8.6-10.8); Carbon Dioxide 20 mEq/L (19-29); Chloride 104 mEq/L (98-109); Glucose 112 mg/dL (70-99); Osmolality,Calculated 279 (280-300); Potassium 3.8 mEq/L (3.5-4.5); Sodium 133 mEq/L (136-145); eGFR For African Americans > 60 (> 60); eGFR For Non-African Americans > 60 (> 60)
[2016-10-22] MEDS: *HR* OxyCODONE/APAP 5/325 TABLET PO PRN (14:24)
[2016-10-23] MEDS: *HR* OxyCODONE/APAP 5/325 TABLET PO PRN (00:39)
[2016-10-23] MEDS: Aztreonam 2,000 MG in D5% in Water (Mini-Bag+) 100 ML IVPB SCH ×4 (00:39→23:48)
[2016-10-23 05:30] LABS: Eosinophils % 0.1 %; Immature Granulocytes % 1.3 % (0-4); Immature Platelets 7.5 % (1.1-6.1); Lymphocytes # 1.2 K/mcL (0.6-4.6); Lymphocytes % 12.2 %; Mean Corpuscular Hemoglobin 30.5 pg (28.0-33.3); Mean Corpuscular Volume 95.4 fL (83.0-100.0); Mean Platelet Volume 11.6 fL (9.4-12.4); Monocytes # 0.9 K/mcL (0.0-1.3); Monocytes % 9.9 %; Neutrophils # 7.2 K/mcL (1.6-8.9); Red Blood Count 2.62 M/mcL (3.82-4.97); Red Cell Distribution Width 18.9 % (11.5-14.5); Segmented Neutrophils % 76.5 %
[2016-10-23] MEDS: Famotidine 20 MG/2 ML VIAL IVP SCH (06:25)
[2016-10-23 07:07] LABS: Platelet Count 99 K/mcL (140-400)
[2016-10-23 07:25] LABS: BUN/Creatinine Ratio 23 (6-26); Blood Urea Nitrogen 17 mg/dL (7-20); Calcium 7.7 mg/dL (8.6-10.8); Carbon Dioxide 22 mEq/L (19-29); Chloride 107 mEq/L (98-109); Glucose 76 mg/dL (70-99); Osmolality,Calculated 280 (280-300); Sodium 135 mEq/L (136-145); eGFR For African Americans > 60 (> 60); eGFR For Non-African Americans > 60 (> 60)
[2016-10-23 07:27] LABS: Potassium 3.4 mEq/L (3.5-4.5)
[2016-10-23] MEDS: *HR* Amiodarone 200 MG TABLET PO SCH (08:48)
[2016-10-23] MEDS: Benzonatate 100 MG CAPSULE PO SCH ×3 (08:48→20:47)
[2016-10-23] MEDS: NIFEdipine XL (24 HR) 30 MG TAB.ER.24 PO SCH (08:48)
[2016-10-23] MEDS: Aspirin Enteric Coated 81 MG Tablet PO SCH (08:48)
[2016-10-23] MEDS: *HR* Enoxaparin 60 MG/0.6 ML SYRINGE SQ SCH ×2 (08:48→18:07)
[2016-10-23] MEDS ORDERED: MethylPREDNISolone 40 MG/ML VIAL IVP SCH (09:00)
[2016-10-23] MEDS: Ondansetron 4 MG/2 ML VIAL IVP PRN (10:21)
[2016-10-23] MEDS ORDERED: predniSONE 20 MG TABLET PO ONE (15:05)
--- NOTE | 2016-10-23 15:10 | Internal Med Progress Note ---
<Ebenezer Coffey - Last Filed: 10/23/16 15:29> Date of Encounter: 10/23/16 Time of Encounter: 09:00 - Assessment and plan (1) HAP (hospital-acquired pneumonia) Current Visit: Yes Status: Acute Assessment and plan: Patient has been in the hospital multiple times over the past several months. HAP is the likely etiology of her hypoxia. However, must consider aspiration pneumonia as a cause as well. Patient coughs significantlly when trying to eat. Consult to speech therapy made for recommendations. White count today 18.1 Patient continues to cough significantly. She was weaned down to 6.5L high flow nasal canula. She has a productive cough with green sputum production. blood culture x2 showed no growth. Influenza A and B antigen negative. urine culture pending Lactate and ABG normal. Added Tessalon for cough. Added 40mg IV methylprednisolone BID. Stopped Levaquin, start Aztreonam, Vanc, Cipro 10/20/16 white count improved to 15.8. Continues to have cough, down to 4L nasal canula. Continue with aztreonam, vanc, cipro. Speech therapy recommended modified barium swallow during her evaluation, which was done earlier today. They recommend nectar thick and mechanically altered diet, which we will follow. Suspect that patient has been aspirating for quite some time, since her pneumonia is localized to the right side. May start diet today because her amylase/lipase levels have decreased. patient complains of RUE pain and swelling- ordered doppler to rule out DVT. 10/21/16 white count today 16.1. COntinue with vanc, Aztreonam, Cipro. Patient is off oxygen currently and continuing to improve. Per speech therapy recommendations, she will be on mechanically altered diet with thin liquids. RUE doppler from yesterday showed superficial vein acute thrombosis. Continue with therapeutic lovenox. Patient and her daughter are complaining that they are not satisfied with the level of care they are receiving at the hospital. They would like to be transferred to [facility]. However, she was not accepted there after we called because it is not a higher level of care. Patient's daughter was also upset because patient's IV went bad yesterday and they had multiple attempts to place another one with no success. They wanted to leave AMA this morning. This afternoon, PICC team placed peripheral IV today successfully. Patient will stay in the hospital for now and will continue to receive IV antibiotics. 10/22 patient is drastically improved since admission. not oxygen dependent. lung sounds significant for mild wheezing, but much improvement. will continue vanc, cipro, aztreonam steroids decreased to 40mg once a day. 10/23/16 patient continuing to improve. tentatively plan for discharge tomorrow. stopped IV steroids, switched to prednisone 40mg. Repeat Right upper extremity doppler. continue antibiotics. (2) Anemia Current Visit: Yes Status: Chronic Assessment and plan: When patient was admitted to the hospital, her Hg was 10.3. Today Hg was 8.7. THis may partly be dilutional from all the fluids she has received. However, there is some concern for blood loss. Will monitor H&H. Iron profile, B12, folate levels will be checked with morning labs. Stool guiac pending. 10/22 stool guiac pending. low iron Hg 8.7 patient is chronically anemic. B12 level normal, folate level is low. will give IV iron infusion today, as patient gets this at home. 10/23/16 Hg today 8.0. Patient received iron infusion yesterday. Supplementing folate. Qualifiers: Anemia type: unspecified type Qualified Code(s): D64.9 - Anemia, unspecified (3) Leukocytosis Current Visit: Yes Status: Resolved Assessment and plan: Plan as above. Qualifiers: Leukocytosis type: unspecified Qualified Code(s): D72.829 - Elevated white blood cell count, unspecified (4) Hypoxia Current Visit: Yes Status: Resolved Assessment and plan: Patient came in with progressing shortness of breath. Patient recently had hernia surgery 1 month ago- concern for PE. Patient denies chest pain. CXR showed no acute cardiopulmonary disease. Unable to do CTA because of kidney function. unable to do V/Q scan because patient becomes hypoxic with little movement, cannot wean her off venti mask today. Highly suspect PE. Her WELLS score is 7- high risk category. Will prophylactically treat for PE with therapeutic lovenox (dose Q24 hours due to decreased Creatinine clearance). ABG revealed pO2 of 47- will repeat ABG tomorrow morning. Patient scheduled for V/Q scan tomorrow if she is more stable and is able to be weaned off ventimask. Order Echo- as patient is higher risk due to history of Afib. Doppler of bilateral lower extremities pending. breathing treatments Q4HR 10/19/16 Bilateral lower extremity doppler negative for DVT. Patient refused V/Q scan today- ordered CTA CTA showed no PE, but showed right lower lobe pneumonia and developing pulmonary edema- plan as #1 above. 10/21/16 Patient continuing to clinically improve. She is currentlly not oxygen dependent. 10/23 stable (5) Pancreatitis Current Visit: Yes Status: Resolved Assessment and plan: Patient complaining of abdominal pain. CT Abdomen/Pelvis showed inflammatory changes in the region of the pancreas most pronounced in the region of the pancreatic head consistent with acute pancreatitis, and mild thickening of the wall of the stomach, which may be reactive to the pancreatitis. wall of the colon was mildly thickened. AST elevated, cholesterol levels within normal limits, Amylase 305, Lipase 521. trend amylase/lipase. NPO IVF at 175/hr pain control. 10/19/16 CTA showed bilateral pleural effusions. IVF stopped. Plan to start clear liquid diet tomorrow and advance as tolerated. 10/20 Patient's amylase and lipase back to normal levels. Plan on starting diet today pending results from barium swallow. 10/21/16 Continue with mechanically altered diet with thin liquids, as recommended by speech therapy. 10/23/16 patient tolerating mechanically altered diet well. continue to monitor. Qualifiers: Chronicity: acute Pancreatitis type: other Acute pancreatitis complication: unspecified Qualified Code(s): K85.80 - Other acute pancreatitis without necrosis or infection (6) Atrial fibrillation Current Visit: Yes Status: Acute Assessment and plan: continue home meds Amiodarone, propanolol. Echo from 10/19 showed LVEF 65%, normal LV size and systolic function, mild diastolic dysfunction. Dilated RV from echo-suggests possible clot. Continue with therapeutic lovenox for anticoagulation while in hospital. Qualifiers: Atrial fibrillation type: paroxysmal Qualified Code(s): I48.0 - Paroxysmal atrial fibrillation (7) Hypokalemia Current Visit: Yes Status: Resolved Assessment and plan: hold oral potassium. Potassium 3.4 today. Will give 40mEq IV (8) DVT prophylaxis Current Visit: Yes Status: Acute Assessment and plan: Lovenox 1mg/kg - Subjective Interval history: 86 year old female evaluated at bedside. patient was laying in bed sleeping. patient denies nausae, vomiting, diarrhea. - Constitutional Vitals: Temp Pulse Resp BP Pulse Ox 98.6 F 86 18 151/96 88 L 10/23/16 07:00 10/23/16 07:00 10/23/16 07:00 10/23/16 07:00 10/23/16 07:00 General appearance: Present: A&O X 3, pleasant, answers questions appropriately - Head Head exam: Present: atraumatic, normocephalic - Neck Neck exam general surgery: Present: supple, trachea midline - Respiratory Respiratory exam: Present: rhonchi, wheezes Additional comments: inspiratory and expiratory wheezing, rhonchi present but much improved since admission. - Cardiovascular Cardiovascular exam: Present: irregular rhythm - GI/Abdominal GI/Abdominal exam: Present: normal bowel sounds, soft. Absent: distended, guarding Additional comments: colostomy present. patient's abdominal scar from her previous surgery is coming apart. Scar is covered up with bandage. - Extremities Exam Extremities exam: Absent: cyanotic, pedal edema Additional comments: tender to palpation. - Incison Incision: Present: red Comments: incision on abdomen from surgery coming apart. - Neurological Exam Neurological exam: Present: alert, oriented X3, no focal deficits - Psychiatric Psychiatric exam: Present: normal affect, normal mood Internal Medicine: Result - Labs CBC & Chem 7: 10/23/16 03:17 10/23/16 07:04 Labs: Short CBC 10/23/16 Range/Units 03:17 WBC 9.4 (4.3-11.1) K/mcL Hgb 8.0 L (11.5-15.4) g/dL Hct 25.0 L (35.3-44.9) % Plt Count 99 L (140-400) K/mcL Neutrophils # 7.2 (1.6-8.9) K/mcL BMP 10/23/16 07:04 Sodium 135 L Potassium 3.4 L Chloride 107 Carbon Dioxide 22 BUN 17 Creatinine 0.73 Glucose 76 Calcium 7.7 L - ABG Interpretation ABG results: ABG ABG pH 7.37 pH Units (7.32-7.45) 10/19/16 05:18 ABG pCO2 37 mmHg (35-45) 10/19/16 05:18 ABG pO2 96 mmHg (85-104) 10/19/16 05:18 ABG O2 Saturation 97 % (95-98) 10/19/16 05:18 PT/INR, D-dimer PT 14.3 Seconds (9.4-12.1) H 10/21/16 04:44 Consult Discharge Plan - Plan Referrals: Marie Valencia M.D. [Primary Care Provider] - 10/29/16 1:15 pm <Steve Knox - Last Filed: 10/23/16 17:49> Date of Encounter: 10/23/16 - Assessment and plan (1) Acute respiratory failure with hypoxia Current Visit: Yes Status: Acute (2) Aspiration pneumonia Current Visit: Yes Status: Suspected Qualifiers: Aspiration pneumonia type: unspecified Laterality: right Lung location: middle lobe of lung Qualified Code(s): J69.0 - Pneumonitis due to inhalation of food and vomit (3) HAP (hospital-acquired pneumonia) Current Visit: Yes Status: Acute (4) Pancreatitis Current Visit: Yes Status: Resolved Qualifiers: Chronicity: acute Pancreatitis type: other Acute pancreatitis complication: unspecified Qualified Code(s): K85.80 - Other acute pancreatitis without necrosis or infection (5) Atrial fibrillation Current Visit: Yes Status: Acute Qualifiers: Atrial fibrillation type: paroxysmal Qualified Code(s): I48.0 - Paroxysmal atrial fibrillation (6) Hypokalemia Current Visit: Yes Status: Resolved (7) Leukocytosis Current Visit: Yes Status: Resolved Qualifiers: Leukocytosis type: unspecified Qualified Code(s): D72.829 - Elevated white blood cell count, unspecified (8) Hypomagnesemia Current Visit: Yes Status: Acute (9) Dysphagia Current Visit: Yes Status: Acute Qualifiers: Dysphagia type: oropharyngeal phase Qualified Code(s): R13.12 - Dysphagia, oropharyngeal phase - Constitutional Vitals: Temp Pulse Resp BP Pulse Ox 98.6 F 74 20 120/65 98 10/23/16 07:00 10/23/16 15:00 10/23/16 15:00 10/23/16 15:00 10/23/16 15:00 Internal Medicine: Result - Labs CBC & Chem 7: 10/23/16 03:17 10/23/16 07:04 Labs: Short CBC 10/23/16 Range/Units 03:17 WBC 9.4 (4.3-11.1) K/mcL Hgb 8.0 L (11.5-15.4) g/dL Hct 25.0 L (35.3-44.9) % Plt Count 99 L (140-400) K/mcL Neutrophils # 7.2 (1.6-8.9) K/mcL BMP 10/23/16 07:04 Sodium 135 L Potassium 3.4 L Chloride 107 Carbon Dioxide 22 BUN 17 Creatinine 0.73 Glucose 76 Calcium 7.7 L - ABG Interpretation ABG results: ABG ABG pH 7.37 pH Units (7.32-7.45) 10/19/16 05:18 ABG pCO2 37 mmHg (35-45) 10/19/16 05:18 ABG pO2 96 mmHg (85-104) 10/19/16 05:18 ABG O2 Saturation 97 % (95-98) 10/19/16 05:18 PT/INR, D-dimer PT 14.3 Seconds (9.4-12.1) H 10/21/16 04:44 - Attending Attestation I examined this patient and my medical decision-making was reviewed with the Resident Physician on 10/23/16. I agree with the documented findings, disposition and treatment plan as described except to the extent set forth below. Ms. Mcmahon is currently admitted for acute hypoxic resp failure due to presumed aspiration pneumonia. She remains moderate to high risk due to potential for worsening respiratory status. Ms. Mcmahon is continuing to slowly improve. No pain. Bowels and appetite OK. Still off oxygen today. She is going to get up and move around some today. Exam Alert. Comfortable Heart reg Lungs clearer today I/P 1. Acute hypoxic resp failure - continues to improve 2. Asp pneumonia 3. Superficial thrombophlebitis - recheck prior to discharge Further diagnoses and plan as above Anticipate d/c tomorrow if continues to improve.
[2016-10-23] MEDS ORDERED: Potassium Chloride 40 MEQ, Lidocaine 1% 2 ML in D5% in Water 500 ML IVPB ONE (15:17)
[2016-10-23] MEDS: Folic Acid 1 MG TABLET PO SCH (15:37)
[2016-10-23] MEDS: GuaiFENesin Liq 200 MG/10 ML UDC PO PRN (18:15)
--- NOTE | 2016-10-23 21:49 | Venous Imaging Report ---
UE Venous Duplex Patient Name:Ailyn Mcmahon Order Number:[id number] Procedure Date:10/23/2016 Date:1930ge:86 yrs Gender:Female Location:[facility] Room #: 2NE21 Phys Asst:Malgorzata Gaston Referring MD:Ebenezer Coffey DO project accountant:None Reading MD:Zeke Albert MD , FACS Primary Indications:r/o DVT, look for new clot Secondary Indications: Risk Factors Yes/No SVT Yes Anticoagulants Yes Impressions: Right upper extremity: normal deep exam. Upper extremity abnormal superficial exam: right Cephalic vein acute thrombosis. Left upper extremity: normal contralateral exam. Findings Venous Duplex Results: Right: Venous imaging of the upper extremity reveals full patency and normal vessel compressibility of the right jugular, right subclavian, right axillary, right brachial, right basilic, right radial and right ulnar. Doppler signals in the evaluated veins were normal. The right cephalic anticubital demonstrates an incompressible vein. Flow was absent and it did not augment. Left: Venous imaging of the upper extremity reveals full patency and normal vessel compressibility of the left jugular. Doppler signals in the evaluated veins were normal. Upper Extremity Venous Duplex Side Vein Compress Spontaneous Flow Augment Right Jugular Normal yes Phasic yes Right Subclavian Normal yes Phasic yes Right Axillary Normal yes Phasic yes Right Brachial Normal yes Phasic yes Right Cephalic anticubital None no Absent no Right Basilic Normal yes Phasic yes Right Radial Normal yes Phasic yes Right Ulnar Normal yes Phasic yes Left Jugular Normal yes Phasic yes Updated by Zeke Albert MD, FACS on 10/23/2016 9:35:57 PM Zeke Albert MD electronically signed on 10/23/2016 9:45:04 PM with status of Final
[2016-10-24 04:31] LABS: Hematocrit 24.5 % (35.3-44.9); Hemoglobin 8.1 g/dL (11.5-15.4); Immature Granulocytes % 0.3 % (0-4); Lymphocytes # 0.7 K/mcL (0.6-4.6); Lymphocytes % 9.4 %; Mean Corpuscular HGB Conc 33.1 g/dL (31.6-35.5); Mean Corpuscular Hemoglobin 31.5 pg (28.0-33.3); Mean Corpuscular Volume 95.3 fL (83.0-100.0); Mean Platelet Volume 11.8 fL (9.4-12.4); Monocytes # 0.5 K/mcL (0.0-1.3); Monocytes % 7.1 %; Platelet Count 102 K/mcL (140-400); Red Blood Count 2.57 M/mcL (3.82-4.97); Red Cell Distribution Width 18.4 % (11.5-14.5); Segmented Neutrophils % 83.2 %
[2016-10-24 04:39] LABS: Ionized Calcium 1.21 mmol/L (1.15-1.35)
[2016-10-24 04:49] LABS: BUN/Creatinine Ratio 22 (6-26); Blood Urea Nitrogen 16 mg/dL (7-20); Calcium 7.9 mg/dL (8.6-10.8); Carbon Dioxide 21 mEq/L (19-29); Chloride 106 mEq/L (98-109); Glucose 105 mg/dL (70-99); Magnesium 0.9 mg/dL (1.6-2.6); Osmolality,Calculated 280 (280-300); Phosphorous 2.3 mg/dL (2.3-4.7); Potassium 4.2 mEq/L (3.5-4.5); Sodium 134 mEq/L (136-145); eGFR For African Americans > 60 (> 60); eGFR For Non-African Americans > 60 (> 60)
[2016-10-24] MEDS ORDERED: Magnesium Sulfate 2 GM in D5% in Water 100 ML IVPB ONE (06:02)
[2016-10-24] MEDS: Benzonatate 100 MG CAPSULE PO SCH ×3 (09:48→19:55)
[2016-10-24] MEDS: Folic Acid 1 MG TABLET PO SCH (09:48)
[2016-10-24] MEDS: *HR* Amiodarone 200 MG TABLET PO SCH (09:49)
[2016-10-24] MEDS: NIFEdipine XL (24 HR) 30 MG TAB.ER.24 PO SCH (09:49)
[2016-10-24] MEDS: Aspirin Enteric Coated 81 MG Tablet PO SCH (09:49)
[2016-10-24] MEDS: Aztreonam 2,000 MG in D5% in Water (Mini-Bag+) 100 ML IVPB SCH ×3 (09:49→23:07)
[2016-10-24] MEDS: MethylPREDNISolone 40 MG/ML VIAL IVP SCH ×2 (10:04→18:26)
[2016-10-24] MEDS: *HR* Enoxaparin 60 MG/0.6 ML SYRINGE SQ SCH ×2 (10:04→18:26)
--- NOTE | 2016-10-24 11:05 | Internal Med Progress Note ---
<Ebenezer Coffey - Last Filed: 10/24/16 11:47> Date of Encounter: 10/24/16 Time of Encounter: 06:15 - Assessment and plan (1) HAP (hospital-acquired pneumonia) Current Visit: Yes Status: Acute Assessment and plan: Patient has been in the hospital multiple times over the past several months. HAP is the likely etiology of her hypoxia. However, must consider aspiration pneumonia as a cause as well. Patient coughs significantlly when trying to eat. Consult to speech therapy made for recommendations. White count today 18.1 Patient continues to cough significantly. She was weaned down to 6.5L high flow nasal canula. She has a productive cough with green sputum production. blood culture x2 showed no growth. Influenza A and B antigen negative. urine culture pending Lactate and ABG normal. Added Tessalon for cough. Added 40mg IV methylprednisolone BID. Stopped Levaquin, start Aztreonam, Vanc, Cipro 10/20/16 white count improved to 15.8. Continues to have cough, down to 4L nasal canula. Continue with aztreonam, vanc, cipro. Speech therapy recommended modified barium swallow during her evaluation, which was done earlier today. They recommend nectar thick and mechanically altered diet, which we will follow. Suspect that patient has been aspirating for quite some time, since her pneumonia is localized to the right side. May start diet today because her amylase/lipase levels have decreased. patient complains of RUE pain and swelling- ordered doppler to rule out DVT. 10/21/16 white count today 16.1. COntinue with vanc, Aztreonam, Cipro. Patient is off oxygen currently and continuing to improve. Per speech therapy recommendations, she will be on mechanically altered diet with thin liquids. RUE doppler from yesterday showed superficial vein acute thrombosis. Continue with therapeutic lovenox. Patient and her daughter are complaining that they are not satisfied with the level of care they are receiving at the hospital. They would like to be transferred to [facility]. However, she was not accepted there after we called because it is not a higher level of care. Patient's daughter was also upset because patient's IV went bad yesterday and they had multiple attempts to place another one with no success. They wanted to leave AMA this morning. This afternoon, PICC team placed peripheral IV today successfully. Patient will stay in the hospital for now and will continue to receive IV antibiotics. 10/22 patient is drastically improved since admission. not oxygen dependent. lung sounds significant for mild wheezing, but much improvement. will continue vanc, cipro, aztreonam steroids decreased to 40mg once a day. 10/23/16 patient continuing to improve. tentatively plan for discharge tomorrow. stopped IV steroids, switched to prednisone 40mg. Repeat Right upper extremity doppler. continue antibiotics. 10/24/16 Patient had a significant amount of coughing, and lung exam shows increased wheezing. hold discharge for now. resume IV steroids 20 BID consult to PT/OT to get patient ready for discharge. patient has been seen by speech therapy- have called and spoke to speech therapy and found out that patient has been refusing the swallow exercise. Have reinforced with patient why this is important. Speech therapy will come and see her again. (2) Anemia Current Visit: Yes Status: Chronic Assessment and plan: When patient was admitted to the hospital, her Hg was 10.3. Today Hg was 8.7. THis may partly be dilutional from all the fluids she has received. However, there is some concern for blood loss. Will monitor H&H. Iron profile, B12, folate levels will be checked with morning labs. Stool guiac pending. 10/22 stool guiac pending. low iron Hg 8.7 patient is chronically anemic. B12 level normal, folate level is low. will give IV iron infusion today, as patient gets this at home. 10/23/16 Hg today 8.0. Patient received iron infusion yesterday. Supplementing folate. 10/24/16 Patient's Hg continues to be stable. Continue with iron infusions outpatient. continue with folate supplementation. Qualifiers: Anemia type: unspecified type Qualified Code(s): D64.9 - Anemia, unspecified (3) Leukocytosis Current Visit: Yes Status: Resolved Assessment and plan: Plan as above. Qualifiers: Leukocytosis type: unspecified Qualified Code(s): D72.829 - Elevated white blood cell count, unspecified (4) Hypoxia Current Visit: Yes Status: Resolved Assessment and plan: Patient came in with progressing shortness of breath. Patient recently had hernia surgery 1 month ago- concern for PE. Patient denies chest pain. CXR showed no acute cardiopulmonary disease. Unable to do CTA because of kidney function. unable to do V/Q scan because patient becomes hypoxic with little movement, cannot wean her off venti mask today. Highly suspect PE. Her WELLS score is 7- high risk category. Will prophylactically treat for PE with therapeutic lovenox (dose Q24 hours due to decreased Creatinine clearance). ABG revealed pO2 of 47- will repeat ABG tomorrow morning. Patient scheduled for V/Q scan tomorrow if she is more stable and is able to be weaned off ventimask. Order Echo- as patient is higher risk due to history of Afib. Doppler of bilateral lower extremities pending. breathing treatments Q4HR 10/19/16 Bilateral lower extremity doppler negative for DVT. Patient refused V/Q scan today- ordered CTA CTA showed no PE, but showed right lower lobe pneumonia and developing pulmonary edema- plan as #1 above. 10/21/16 Patient continuing to clinically improve. She is currentlly not oxygen dependent. 10/23 stable (5) Pancreatitis Current Visit: Yes Status: Resolved Assessment and plan: Patient complaining of abdominal pain. CT Abdomen/Pelvis showed inflammatory changes in the region of the pancreas most pronounced in the region of the pancreatic head consistent with acute pancreatitis, and mild thickening of the wall of the stomach, which may be reactive to the pancreatitis. wall of the colon was mildly thickened. AST elevated, cholesterol levels within normal limits, Amylase 305, Lipase 521. trend amylase/lipase. NPO IVF at 175/hr pain control. 10/19/16 CTA showed bilateral pleural effusions. IVF stopped. Plan to start clear liquid diet tomorrow and advance as tolerated. 10/20 Patient's amylase and lipase back to normal levels. Plan on starting diet today pending results from barium swallow. 10/21/16 Continue with mechanically altered diet with thin liquids, as recommended by speech therapy. 10/23/16 patient tolerating mechanically altered diet well. continue to monitor. Qualifiers: Chronicity: acute Pancreatitis type: other Acute pancreatitis complication: unspecified Qualified Code(s): K85.80 - Other acute pancreatitis without necrosis or infection (6) Atrial fibrillation Current Visit: Yes Status: Acute Assessment and plan: continue home meds Amiodarone, propanolol. Echo from 10/19 showed LVEF 65%, normal LV size and systolic function, mild diastolic dysfunction. Dilated RV from echo-suggests possible clot. Continue with therapeutic lovenox for anticoagulation while in hospital. Please consider being on Lovenox outpatient for Afib- should discuss this with PCP after dishcarge. Qualifiers: Atrial fibrillation type: paroxysmal Qualified Code(s): I48.0 - Paroxysmal atrial fibrillation (7) Hypokalemia Current Visit: Yes Status: Resolved Assessment and plan: resolved. (8) DVT prophylaxis Current Visit: Yes Status: Acute Assessment and plan: Lovenox 1mg/kg - Subjective Interval history: 86 year old female evaluated at bedside. patient was asleep before examination. Patient states that she was "coughing all night long." Patient was able to get up and walk around some yesterday. She wayne nausea, vomiting, diarrhea, fever, chills. - Constitutional Vitals: Temp Pulse Resp BP Pulse Ox 97.9 F 75 16 118/56 100 10/23/16 21:00 10/23/16 21:00 10/23/16 21:00 10/23/16 21:00 10/24/16 09:00 General appearance: Present: A&O X 3, pleasant, no acute distress, answers questions appropriately - Head Head exam: Present: atraumatic, normocephalic - Neck Neck exam general surgery: Present: supple, trachea midline - Respiratory Respiratory exam: Present: rhonchi, wheezes Additional comments: patient had a significant amount of high pitched wheezes that sound worse today than yesterday. - Cardiovascular Cardiovascular exam: Present: irregular rhythm - GI/Abdominal GI/Abdominal exam: Present: normal bowel sounds, soft. Absent: guarding Additional comments: colostomy present. bandages in place from recent abdominal surgery. - Extremities Exam Extremities exam: Absent: cyanotic, pedal edema - Neurological Exam Neurological exam: Present: alert, oriented X3 - Psychiatric Psychiatric exam: Present: depressed - Skin Additional comments: skin is very thin Internal Medicine: Result - Labs CBC & Chem 7: 10/24/16 04:22 10/24/16 04:22 Labs: Short CBC 10/24/16 Range/Units 04:22 WBC 7.2 (4.3-11.1) K/mcL Hgb 8.1 L (11.5-15.4) g/dL Hct 24.5 L (35.3-44.9) % Plt Count 102 L (140-400) K/mcL Neutrophils # 6.0 (1.6-8.9) K/mcL BMP 10/24/16 04:22 Sodium 134 L Potassium 4.2 Chloride 106 Carbon Dioxide 21 BUN 16 Creatinine 0.73 Glucose 105 H Calcium 7.9 L - ABG Interpretation ABG results: ABG ABG pH 7.37 pH Units (7.32-7.45) 10/19/16 05:18 ABG pCO2 37 mmHg (35-45) 10/19/16 05:18 ABG pO2 96 mmHg (85-104) 10/19/16 05:18 ABG O2 Saturation 97 % (95-98) 10/19/16 05:18 PT/INR, D-dimer PT 14.3 Seconds (9.4-12.1) H 10/21/16 04:44 Consult Discharge Plan - Plan Referrals: Marie Valencia M.D. [Primary Care Provider] - 10/29/16 1:15 pm <Steve Knox - Last Filed: 10/24/16 15:43> Date of Encounter: 10/24/16 - Assessment and plan (1) Acute respiratory failure with hypoxia Current Visit: Yes Status: Acute (2) Aspiration pneumonia Current Visit: Yes Status: Suspected Qualifiers: Aspiration pneumonia type: unspecified Laterality: right Lung location: middle lobe of lung Qualified Code(s): J69.0 - Pneumonitis due to inhalation of food and vomit (3) HAP (hospital-acquired pneumonia) Current Visit: Yes Status: Acute (4) Pancreatitis Current Visit: Yes Status: Resolved Qualifiers: Chronicity: acute Pancreatitis type: other Acute pancreatitis complication: unspecified Qualified Code(s): K85.80 - Other acute pancreatitis without necrosis or infection (5) Atrial fibrillation Current Visit: Yes Status: Acute Qualifiers: Atrial fibrillation type: paroxysmal Qualified Code(s): I48.0 - Paroxysmal atrial fibrillation (6) Hypokalemia Current Visit: Yes Status: Resolved (7) Leukocytosis Current Visit: Yes Status: Resolved Qualifiers: Leukocytosis type: unspecified Qualified Code(s): D72.829 - Elevated white blood cell count, unspecified (8) Hypomagnesemia Current Visit: Yes Status: Acute (9) Dysphagia Current Visit: Yes Status: Acute Qualifiers: Dysphagia type: oropharyngeal phase Qualified Code(s): R13.12 - Dysphagia, oropharyngeal phase - Constitutional Vitals: Temp Pulse Resp BP Pulse Ox 98.5 F 75 17 122/56 98 10/24/16 11:59 10/23/16 21:00 10/24/16 11:59 10/24/16 11:59 10/24/16 11:59 Internal Medicine: Result - Labs CBC & Chem 7: 10/24/16 04:22 10/24/16 04:22 Labs: Short CBC 10/24/16 Range/Units 04:22 WBC 7.2 (4.3-11.1) K/mcL Hgb 8.1 L (11.5-15.4) g/dL Hct 24.5 L (35.3-44.9) % Plt Count 102 L (140-400) K/mcL Neutrophils # 6.0 (1.6-8.9) K/mcL BMP 10/24/16 04:22 Sodium 134 L Potassium 4.2 Chloride 106 Carbon Dioxide 21 BUN 16 Creatinine 0.73 Glucose 105 H Calcium 7.9 L - ABG Interpretation ABG results: ABG ABG pH 7.37 pH Units (7.32-7.45) 10/19/16 05:18 ABG pCO2 37 mmHg (35-45) 10/19/16 05:18 ABG pO2 96 mmHg (85-104) 10/19/16 05:18 ABG O2 Saturation 97 % (95-98) 10/19/16 05:18 PT/INR, D-dimer PT 14.3 Seconds (9.4-12.1) H 10/21/16 04:44 - Attending Attestation I examined this patient and my medical decision-making was reviewed with the Resident Physician on 10/24/16. I agree with the documented findings, disposition and treatment plan as described except to the extent set forth below. Ms. Mcmahon is currently admitted for acute aspiration pneumonia with hypoxic resp failure. She remains moderate to high risk due to potential for worsening respiratory status. Ms. Mcmahon is more congested today. There was concern for aspiration again yesterday. No fever or chills. No GI symptoms. Denies chest pain currently, Exam Alert. Comfortable. Heart reg Moist cough and secretions noted. I/P 1. Acute hypoxic resp failure 2. Aps PNA Further diagnoses and plan as above.
[2016-10-24] MEDS: GuaiFENesin Liq 200 MG/10 ML UDC PO PRN (11:29)
[2016-10-24] MEDS: Ondansetron 4 MG/2 ML VIAL IVP PRN (21:00)
[2016-10-25 03:02] LABS: Hematocrit 25.4 % (35.3-44.9); Hemoglobin 8.1 g/dL (11.5-15.4); Immature Platelets 5.9 % (1.1-6.1); Mean Corpuscular HGB Conc 31.9 g/dL (31.6-35.5); Mean Corpuscular Hemoglobin 30.2 pg (28.0-33.3); Mean Corpuscular Volume 94.8 fL (83.0-100.0); Platelet Count 127 K/mcL (140-400); Red Blood Count 2.68 M/mcL (3.82-4.97); Red Cell Distribution Width 18.4 % (11.5-14.5); Segmented Neutrophils % 81.5 %
[2016-10-25 03:03] LABS: Immature Granulocytes % 1.1 % (0-4); Lymphocytes # 0.7 K/mcL (0.6-4.6); Lymphocytes % 8.8 %; Monocytes # 0.7 K/mcL (0.0-1.3); Monocytes % 8.6 %; Neutrophils # 6.5 K/mcL (1.6-8.9)
[2016-10-25] MEDS: *HR* Enoxaparin 60 MG/0.6 ML SYRINGE SQ SCH ×2 (05:10→17:32)
[2016-10-25] MEDS: MethylPREDNISolone 40 MG/ML VIAL IVP SCH ×2 (05:10→17:32)
[2016-10-25 08:12] LABS: Ionized Calcium 1.13 mmol/L (1.15-1.35)
[2016-10-25 08:17] LABS: BUN/Creatinine Ratio 23 (6-26); Blood Urea Nitrogen 17 mg/dL (7-20); Calcium 7.9 mg/dL (8.6-10.8); Carbon Dioxide 23 mEq/L (19-29); Chloride 105 mEq/L (98-109); Glucose 85 mg/dL (70-99); Magnesium 1.3 mg/dL (1.6-2.6); Osmolality,Calculated 281 (280-300); Phosphorous 2.5 mg/dL (2.3-4.7); Sodium 135 mEq/L (136-145); eGFR For African Americans > 60 (> 60); eGFR For Non-African Americans > 60 (> 60)
[2016-10-25 08:20] LABS: Potassium 3.6 mEq/L (3.5-4.5)
[2016-10-25] MEDS: *HR* Amiodarone 200 MG TABLET PO SCH (08:29)
[2016-10-25] MEDS: NIFEdipine XL (24 HR) 30 MG TAB.ER.24 PO SCH (08:29)
[2016-10-25] MEDS: Aspirin Enteric Coated 81 MG Tablet PO SCH (08:29)
[2016-10-25] MEDS: Benzonatate 100 MG CAPSULE PO SCH ×3 (08:29→20:27)
[2016-10-25] MEDS: Aztreonam 2,000 MG in D5% in Water (Mini-Bag+) 100 ML IVPB SCH ×3 (08:30→23:18)
[2016-10-25] MEDS: Folic Acid 1 MG TABLET PO SCH (08:30)
[2016-10-25] MEDS ORDERED: Magnesium Sulfate 2 GM in D5% in Water 100 ML IV ONE (08:42)
[2016-10-25] MEDS ORDERED: Vancomycin 750 MG in D5% in Water 250 ML IVPB SCH (12:00)
[2016-10-25] MEDS ORDERED: Vancomycin 1,000 MG in D5% in Water 250 ML IVPB SCH (13:00)
--- NOTE | 2016-10-25 18:15 | Internal Med Progress Note ---
Date of Encounter: 10/25/16 Time of Encounter: 08:15 - Assessment and plan (1) Acute respiratory failure with hypoxia Current Visit: Yes Status: Acute Assessment and plan: She is doing OK without the oxygen despite worsening clinical findings. Continue supplementation as needed. (2) Aspiration pneumonia Current Visit: Yes Status: Suspected Assessment and plan: Continues to have significant respiratory symptoms. Vancomycin restarted today. Repeat CXR today. Probable dc tomorrow on PO doxycycline. Qualifiers: Aspiration pneumonia type: unspecified Laterality: right Lung location: middle lobe of lung Qualified Code(s): J69.0 - Pneumonitis due to inhalation of food and vomit (3) HAP (hospital-acquired pneumonia) Current Visit: Yes Status: Acute Assessment and plan: Patient has been in the hospital multiple times over the past several months. HAP is the likely etiology of her hypoxia. However, must consider aspiration pneumonia as a cause as well. Patient coughs significantlly when trying to eat. Consult to speech therapy made for recommendations. White count today 18.1 Patient continues to cough significantly. She was weaned down to 6.5L high flow nasal canula. She has a productive cough with green sputum production. blood culture x2 showed no growth. Influenza A and B antigen negative. urine culture pending Lactate and ABG normal. Added Tessalon for cough. Added 40mg IV methylprednisolone BID. Stopped Levaquin, start Aztreonam, Vanc, Cipro 10/20/16 white count improved to 15.8. Continues to have cough, down to 4L nasal canula. Continue with aztreonam, vanc, cipro. Speech therapy recommended modified barium swallow during her evaluation, which was done earlier today. They recommend nectar thick and mechanically altered diet, which we will follow. Suspect that patient has been aspirating for quite some time, since her pneumonia is localized to the right side. May start diet today because her amylase/lipase levels have decreased. patient complains of RUE pain and swelling- ordered doppler to rule out DVT. 10/21/16 white count today 16.1. COntinue with vanc, Aztreonam, Cipro. Patient is off oxygen currently and continuing to improve. Per speech therapy recommendations, she will be on mechanically altered diet with thin liquids. RUE doppler from yesterday showed superficial vein acute thrombosis. Continue with therapeutic lovenox. Patient and her daughter are complaining that they are not satisfied with the level of care they are receiving at the hospital. They would like to be transferred to [facility]. However, she was not accepted there after we called because it is not a higher level of care. Patient's daughter was also upset because patient's IV went bad yesterday and they had multiple attempts to place another one with no success. They wanted to leave AMA this morning. This afternoon, PICC team placed peripheral IV today successfully. Patient will stay in the hospital for now and will continue to receive IV antibiotics. 10/22 patient is drastically improved since admission. not oxygen dependent. lung sounds significant for mild wheezing, but much improvement. will continue vanc, cipro, aztreonam steroids decreased to 40mg once a day. 10/23/16 patient continuing to improve. tentatively plan for discharge tomorrow. stopped IV steroids, switched to prednisone 40mg. Repeat Right upper extremity doppler. continue antibiotics. 10/24/16 Patient had a significant amount of coughing, and lung exam shows increased wheezing. hold discharge for now. resume IV steroids 20 BID consult to PT/OT to get patient ready for discharge. patient has been seen by speech therapy- have called and spoke to speech therapy and found out that patient has been refusing the swallow exercise. Have reinforced with patient why this is important. Speech therapy will come and see her again. 10/25 - Restared Vancomycin today. Recheck CXR. (4) Pancreatitis Current Visit: Yes Status: Resolved Assessment and plan: Patient complaining of abdominal pain. CT Abdomen/Pelvis showed inflammatory changes in the region of the pancreas most pronounced in the region of the pancreatic head consistent with acute pancreatitis, and mild thickening of the wall of the stomach, which may be reactive to the pancreatitis. wall of the colon was mildly thickened. AST elevated, cholesterol levels within normal limits, Amylase 305, Lipase 521. trend amylase/lipase. NPO IVF at 175/hr pain control. 10/19/16 CTA showed bilateral pleural effusions. IVF stopped. Plan to start clear liquid diet tomorrow and advance as tolerated. 10/20 Patient's amylase and lipase back to normal levels. Plan on starting diet today pending results from barium swallow. 10/21/16 Continue with mechanically altered diet with thin liquids, as recommended by speech therapy. 10/23/16 patient tolerating mechanically altered diet well. continue to monitor. Qualifiers: Chronicity: acute Pancreatitis type: other Acute pancreatitis complication: unspecified Qualified Code(s): K85.80 - Other acute pancreatitis without necrosis or infection (5) Atrial fibrillation Current Visit: Yes Status: Acute Assessment and plan: Continues on PO amiodarone. No issues currently. Qualifiers: Atrial fibrillation type: paroxysmal Qualified Code(s): I48.0 - Paroxysmal atrial fibrillation (6) Hypokalemia Current Visit: Yes Status: Resolved Assessment and plan: resolved. (7) Leukocytosis Current Visit: Yes Status: Resolved Assessment and plan: Plan as above. Qualifiers: Leukocytosis type: unspecified Qualified Code(s): D72.829 - Elevated white blood cell count, unspecified (8) Hypomagnesemia Current Visit: Yes Status: Acute Assessment and plan: Replace today. (9) Dysphagia Current Visit: Yes Status: Acute Assessment and plan: Modified diet ordered Qualifiers: Dysphagia type: oropharyngeal phase Qualified Code(s): R13.12 - Dysphagia, oropharyngeal phase - Subjective Interval history: Ms. Mcmahon is currently admitted for acute hypoxic resp failure related to presumed aspiration pneumonia. She remains moderate to high risk due to potential for worsening respiratory status. Ms. Mcmahon was up walking in [place] with therapy. She was able to go 60 feet. She has a lot of congestion in her R lung and is coughing significant sputum today. Vancomycin had been stopped and she seems to be worse since that time. - Constitutional Vitals: Temp Pulse Resp BP Pulse Ox 97.6 F 70 18 122/69 95 10/25/16 15:56 10/25/16 15:56 10/25/16 15:56 10/25/16 15:56 10/25/16 15:56 General appearance: Present: A&O X 3, pleasant, answers questions appropriately - Head Head exam: Present: normocephalic - Eye Eye exam: Present: conjuntiva pink - ENT ENT exam: Present: mucous membranes moist - Respiratory Respiratory exam: Present: rhonchi Additional comments: Significant rhonchi in R chest - does not clear with cough. No wheeze. - Cardiovascular Cardiovascular exam: Present: RRR. Absent: tachycardia - GI/Abdominal GI/Abdominal exam: Present: soft. Absent: tenderness - Extremities Exam Extremities exam: Present: warm. Absent: pedal edema, tenderness Additional comments: Some edema persist RUE area. - Neurological Exam Neurological exam: Present: alert, oriented X3, no focal deficits - Psychiatric Psychiatric exam: Present: normal affect, normal mood - Skin Additional comments: Ecchymoses present. Internal Medicine: Result - Labs CBC & Chem 7: 10/25/16 02:58 10/25/16 06:34 Labs: Short CBC 10/25/16 Range/Units 02:58 WBC 8.0 (4.3-11.1) K/mcL Hgb 8.1 L (11.5-15.4) g/dL Hct 25.4 L (35.3-44.9) % Plt Count 127 L (140-400) K/mcL Neutrophils # 6.5 (1.6-8.9) K/mcL BMP 10/25/16 06:34 Sodium 135 L Potassium 3.6 Chloride 105 Carbon Dioxide 23 BUN 17 Creatinine 0.74 Glucose 85 Calcium 7.9 L - ABG Interpretation ABG results: ABG ABG pH 7.37 pH Units (7.32-7.45) 10/19/16 05:18 ABG pCO2 37 mmHg (35-45) 10/19/16 05:18 ABG pO2 96 mmHg (85-104) 10/19/16 05:18 ABG O2 Saturation 97 % (95-98) 10/19/16 05:18 PT/INR, D-dimer PT 14.3 Seconds (9.4-12.1) H 10/21/16 04:44 - Impressions Impressions Chest X-Ray 10/25/16 11:40 IMPRESSION: Mild infiltrate in the right lower lobe compatible with pneumonia. Minimal residual posterior pleural effusions D/ / Zeke Chisholm MD / Zeke Chisholm MD Interpreting Provider: Zeke Chisholm MD Consult Discharge Plan - Plan Referrals: Marie Valencia M.D. [Primary Care Provider] - 10/29/16 1:15 pm
[2016-10-26 03:39] LABS: Hematocrit 25.3 % (35.3-44.9); Hemoglobin 8.3 g/dL (11.5-15.4); Immature Platelets 5.6 % (1.1-6.1); Mean Corpuscular HGB Conc 32.8 g/dL (31.6-35.5); Mean Corpuscular Hemoglobin 30.7 pg (28.0-33.3); Mean Corpuscular Volume 93.7 fL (83.0-100.0); Red Blood Count 2.7 M/mcL (3.82-4.97); Red Cell Distribution Width 18.3 % (11.5-14.5)
[2016-10-26 03:53] LABS: Alanine Aminotransferase 19 Units/L (0-55); Albumin/Globulin Ratio 0.6 (1.1-2.2); Alkaline Phosphatase 105 Units/L (38-126); Aspartate Amino Transferase 32 Units/L (5-34); BUN/Creatinine Ratio 25 (6-26); Bilirubin,Total 0.4 mg/dL (0.2-1.2); Blood Urea Nitrogen 19 mg/dL (7-20); Calcium 7.6 mg/dL (8.6-10.8); Carbon Dioxide 23 mEq/L (19-29); Chloride 105 mEq/L (98-109); Glucose 109 mg/dL (70-99); Magnesium 1.7 mg/dL (1.6-2.6); Osmolality,Calculated 281 (280-300); Sodium 134 mEq/L (136-145); Total Protein 4.8 g/dL (6.0-8.3); eGFR For African Americans > 60 (> 60); eGFR For Non-African Americans > 60 (> 60)
[2016-10-26 03:55] LABS: Albumin 1.8 g/dL (3.5-5.0); Potassium 4.5 mEq/L (3.5-4.5)
[2016-10-26] MEDS: *HR* Enoxaparin 60 MG/0.6 ML SYRINGE SQ SCH (06:36)
[2016-10-26] MEDS: MethylPREDNISolone 40 MG/ML VIAL IVP SCH (06:36)
[2016-10-26 07:32] VITALS: BP 131/72
--- NOTE | 2016-10-26 08:58 | Discharge Summary ---
Date of Encounter: 10/26/16 Time of Encounter: 08:50 - Discharge Diagnosis (1) Acute respiratory failure with hypoxia Priority: Primary Status: Resolved (2) Aspiration pneumonia Priority: Primary Status: Suspected Qualifiers: Aspiration pneumonia type: unspecified Laterality: right Lung location: middle lobe of lung Qualified Code(s): J69.0 - Pneumonitis due to inhalation of food and vomit (3) HAP (hospital-acquired pneumonia) Priority: Primary Status: Acute (4) Anemia Priority: Secondary Status: Chronic Qualifiers: Anemia type: other cause Other causes of anemia: chronic disease, other Qualified Code(s): D63.8 - Anemia in other chronic diseases classified elsewhere (5) Dysphagia Priority: Primary Status: Chronic Qualifiers: Dysphagia type: oropharyngeal phase Qualified Code(s): R13.12 - Dysphagia, oropharyngeal phase (6) Atrial fibrillation Priority: Secondary Status: Chronic Qualifiers: Atrial fibrillation type: paroxysmal Qualified Code(s): I48.0 - Paroxysmal atrial fibrillation (7) Pancreatitis Priority: Secondary Status: Resolved Qualifiers: Chronicity: acute Pancreatitis type: other Acute pancreatitis complication: unspecified Qualified Code(s): K85.80 - Other acute pancreatitis without necrosis or infection (8) Hypokalemia Priority: Secondary Status: Resolved (9) Leukocytosis Priority: Secondary Status: Resolved Qualifiers: Leukocytosis type: unspecified Qualified Code(s): D72.829 - Elevated white blood cell count, unspecified (10) Hypomagnesemia Priority: Secondary Status: Resolved - Discharge Medications Prescriptions: Clindamycin [Cleocin] 150 mg PO Q6HR #28 capsule Benzonatate [Tessalon] 100 mg PO TID PRN #60 capsule PRN Reason: Cough Folic Acid 1 mg PO DAILY #30 tablet PredniSONE 10 mg PO DAILY #30 tablet Home Medications: Albuterol Neb [Proventil Neb] 2.5 mg IH TID 10/17/16 [History] Amiodarone [Cordarone] 200 mg PO DAILY 10/17/16 [History] Aspirin Enteric Coated [Aspirin EC] 81 mg PO DAILY 10/17/16 [History] Dextromethorphan Polistirex [Delsym] 60 mg PO Q12H PRN 10/17/16 [History] Docusate [Colace] 200 mg PO BID 10/17/16 [History] Duloxetine [Cymbalta] 30 mg PO QAM 10/17/16 [History] HYDROcodone/Acet 5/325 mg [[place] 5-325 mg] 1 - 2 tab PO Q4-6H PRN 10/17/16 [ History] NIFEdipine [Nifedipine ER] 30 mg PO DAILY 10/17/16 [History] Omeprazole [PriLOSEC] 20 mg PO DAILY 10/17/16 [History] Polyethylene Glycol 3350 [MiraLAX] 17 gm PO DAILY 10/17/16 [History] Potassium Chloride [Klor-Con 10] 20 meq PO DAILY 10/17/16 [History] Propranolol [Inderal] 10 mg PO BID 10/17/16 [History] Benzonatate [Tessalon] 100 mg PO TID PRN #60 capsule 10/26/16 [Rx] Clindamycin [Cleocin] 150 mg PO Q6HR #28 capsule 10/26/16 [Rx] Folic Acid 1 mg PO DAILY #30 tablet 10/26/16 [Rx] PredniSONE 10 mg PO DAILY #30 tablet 10/26/16 [Rx] Allergies/Adverse Reactions: Allergies amlodipine [From Lotrel] Allergy (Verified 07/24/16 00:54) Hives bacitracin [From Neosporin ([id number])] Allergy (Verified 07/24/16 00:54) Hives benazepril [From Lotrel] Allergy (Verified 07/24/16 00:54) Hives cephalexin Allergy (Verified 07/24/16 00:54) Hives codeine Allergy (Verified 07/24/16 00:34) Hives Erythromycin Base Allergy (Verified 07/24/16 00:54) Hives Neomycin [From Neosporin ([id number])] Allergy (Verified 07/24/16 00:54) Hives olmesartan [From Benicar] Allergy (Verified 07/24/16 00:54) Hives Penicillins Allergy (Verified 07/24/16 00:34) Hives polymyxin B [From Neosporin ([id number])] Allergy (Verified 07/24/16 00:54) Hives Procedures/tests Complete & Pending: Procedures Performed prior 72 hours Category Date Time Status Venous Doppler [EV venous imaging UE RT] Routine Y 10/23/16 15:06 Completed Date of admission: 10/18/16 00:41 Primary care physician: Marie Valencia M.D. Consults: 10/19/16 18:10 Consult to Speech Therapy [CONS] Stat Comment: Evaluate, develop and implement POC Reason for Consult: patient is coughing with food. needs swallow eval. has aspiration pneumonia currently. Call Completed: No 10/21/16 12:57 Consult to Invasive Line Access Team [CONS] Routine Reason for Consult: multiple IV ABX, multiple IV sticks last night without success Line Type: Midline 10/24/16 08:42 Consult to Occupational Therapy [CONS] Stat Comment: Evaluate, develop and implement POC Consult to Physical Therapy [CONS] Stat Comment: Evaluate, develop and implement POC Discharging clinician: Steve Knox Anticipated date of discharge: 10/26/16 - Patient Status Disposition: Home Health Service Condition: Fair Functional capacity at discharge: uses cane/walker Overall status at discharge: patient is progressing back to baseline - Discharge Instructions Follow Up With: Marie Valencia M.D. [Primary Care Provider] - 10/29/16 1:15 pm - Diet and Activity Activity: increase activity as tolerated Diet: advance to your usual diet (Mechanically altered. [place] thick liquids. No straws.) Hospital course: Ms. Mcmahon is a 86 year old female with history of paroxysmal atrial fibrillation, colon cancer s/p resection and colostomy and HTN presented to ED with increased dyspnea and lethargy. She was found to be tachypneic and hypoxic. Her initial pO2 was 47. Due to OLIVIA she was unable to have CTA to r/o PE so she was started on therapeutic anticoagulation and V/Q was ordered. She was admitted for further evaluation and treatment. On admission she was noted to have acute pancreatitis as well and initially she was NPO. Ms. Mcmahon was admitted to [facility]. She was placed on high levels of oxygen and bipap. She continued to be profoundly hypoxic and ultimately her renal function improved and she was able to have CTA. This showed R side pneumonia which was consistent with aspiration. She was on broad spectrum abx. Her pancreatitis improved and she was able to be started on a PO diet. She was seen by speech therapy and had MBS and diet was modified. She was also followed by speech therapy. She continued to have issues with wheezing and congestion and abx were adjusted with improvement in symptoms. She developed some swelling in her RUE and venous duplex revealed superficial thrombus. She was evaluated by PT/OT and recommended home health care. IV Vancomycin was stopped but patient had increased secretions so this was restarted. Steroids were switched to PO but with increased secretions and wheezing were changed back to IV. On 10/26/16 she was afebrile and alert. Her vitals were good. She was still coughing but chest was clearer. She had ambulated 60feet the prior day. Her CXR was improving. At that time she was felt stable for discharge home on PO abx and steroids with outpatient follow up and home health care. - Time Spent with Patient Total time spent providing and/or coordinating discharge services: 44min - Constitutional Vitals: Temp Pulse Resp BP Pulse Ox 97.8 F 73 16 131/72 100 10/26/16 07:31 10/26/16 07:31 10/26/16 07:31 10/26/16 07:31 10/26/16 07:31 General appearance: Present: A&O X 3, pleasant, answers questions appropriately - Head Head exam: Present: normocephalic - Eye Eye exam: Present: EOMI, conjuntiva pink - ENT ENT exam: Present: mucous membranes moist - Respiratory Respiratory exam: Present: rhonchi Additional comments: Few rhonchi heard but overall improved. No wheeze. - Cardiovascular Cardiovascular exam: Present: RRR. Absent: systolic murmur, tachycardia - GI/Abdominal GI/Abdominal exam: Present: soft. Absent: tenderness - Extremities Exam Extremities exam: Present: warm. Absent: pedal edema, tenderness Additional comments: Still with some edema RUE area. - Neurological Exam Neurological exam: Present: alert, oriented X3, no focal deficits - Psychiatric Psychiatric exam: Present: normal affect, normal mood - Skin Skin exam: Present: warm. Absent: rash (Ecchymoses noted.)
[2016-10-26] MEDS: NIFEdipine XL (24 HR) 30 MG TAB.ER.24 PO SCH (09:05)
[2016-10-26] MEDS: Aspirin Enteric Coated 81 MG Tablet PO SCH (09:05)
[2016-10-26] MEDS: Folic Acid 1 MG TABLET PO SCH (09:05)
[2016-10-26] MEDS: Benzonatate 100 MG CAPSULE PO SCH (09:05)
[2016-10-26] MEDS: *HR* Amiodarone 200 MG TABLET PO SCH (09:06)
[2016-10-26] MEDS: Aztreonam 2,000 MG in D5% in Water (Mini-Bag+) 100 ML IVPB SCH (09:07)
[2016-10-26] MEDS ORDERED: predniSONE 20 MG TABLET PO ONE (09:11)
--- NOTE | 2016-10-26 09:25 | Physician Discharge Referral ---
Home Health/Hosp Referral Info Transfer to: Home Health Attending Provider: Steve Knox DO Provider in Charge Post Discharge: PCP - Diagnosis (1) Acute respiratory failure with hypoxia Priority: Primary Status: Resolved (2) Aspiration pneumonia Priority: Primary Status: Suspected (3) HAP (hospital-acquired pneumonia) Priority: Primary Status: Acute (4) Anemia Priority: Secondary Status: Chronic (5) Dysphagia Priority: Primary Status: Chronic (6) Atrial fibrillation Priority: Secondary Status: Chronic (7) Pancreatitis Priority: Secondary Status: Resolved (8) Hypokalemia Priority: Secondary Status: Resolved (9) Leukocytosis Priority: Secondary Status: Resolved (10) Hypomagnesemia Priority: Secondary Status: Resolved - Respiratory Orders None Smoking Cessation: Smoking cessation has been advised. For more information, call the [employer] Quit Line at 7-801-YMOS-NOW. - Diet/Nutrition Diet/Nutrition Orders: Cardiac Diet/Nutrition: List: Mechanically altered. [place] thick liquids. No straws. - Activity Activity Orders: Up ad rufina, Walker - Services Needed Following services are medically necessary services: Nursing, Physical Therapy, Occupational Therapy, Speech Therapy - Transfer Medications Prescriptions: Clindamycin [Cleocin] 150 mg PO Q6HR #28 capsule Benzonatate [Tessalon] 100 mg PO TID PRN #60 capsule PRN Reason: Cough Folic Acid 1 mg PO DAILY #30 tablet PredniSONE 10 mg PO DAILY #30 tablet Home Medications: Albuterol Neb [Proventil Neb] 2.5 mg IH TID 10/17/16 [History] Amiodarone [Cordarone] 200 mg PO DAILY 10/17/16 [History] Aspirin Enteric Coated [Aspirin EC] 81 mg PO DAILY 10/17/16 [History] Dextromethorphan Polistirex [Delsym] 60 mg PO Q12H PRN 10/17/16 [History] Docusate [Colace] 200 mg PO BID 10/17/16 [History] Duloxetine [Cymbalta] 30 mg PO QAM 10/17/16 [History] HYDROcodone/Acet 5/325 mg [[place] 5-325 mg] 1 - 2 tab PO Q4-6H PRN 10/17/16 [ History] NIFEdipine [Nifedipine ER] 30 mg PO DAILY 10/17/16 [History] Omeprazole [PriLOSEC] 20 mg PO DAILY 10/17/16 [History] Polyethylene Glycol 3350 [MiraLAX] 17 gm PO DAILY 10/17/16 [History] Potassium Chloride [Klor-Con 10] 20 meq PO DAILY 10/17/16 [History] Propranolol [Inderal] 10 mg PO BID 10/17/16 [History] Benzonatate [Tessalon] 100 mg PO TID PRN #60 capsule 10/26/16 [Rx] Clindamycin [Cleocin] 150 mg PO Q6HR #28 capsule 10/26/16 [Rx] Folic Acid 1 mg PO DAILY #30 tablet 10/26/16 [Rx] PredniSONE 10 mg PO DAILY #30 tablet 10/26/16 [Rx] Allergies/Adverse Reactions: Allergies amlodipine [From Lotrel] Allergy (Verified 07/24/16 00:54) Hives bacitracin [From Neosporin ([id number])] Allergy (Verified 07/24/16 00:54) Hives benazepril [From Lotrel] Allergy (Verified 07/24/16 00:54) Hives cephalexin Allergy (Verified 07/24/16 00:54) Hives codeine Allergy (Verified 07/24/16 00:34) Hives Erythromycin Base Allergy (Verified 07/24/16 00:54) Hives Neomycin [From Neosporin ([id number])] Allergy (Verified 07/24/16 00:54) Hives olmesartan [From Benicar] Allergy (Verified 07/24/16 00:54) Hives Penicillins Allergy (Verified 07/24/16 00:34) Hives polymyxin B [From Neosporin ([id number])] Allergy (Verified 07/24/16 00:54) Hives Certification: Further, I certify that my clinical findings support that this patient is homebound (i.e. absences from home require considerable and taxing effort and are for medical reasons or orthodoxy services or infrequently or short duration when for other reasons) because: Homebound Reason: Patient requires assistance of a person or device to safely leave home, Leaving home requires considerable and taxing effort due to condition, Severity of cardiac or pulmonary status limits activity tolerance Attestation: My signature below is to certify that this patient is under my care and that I, or nurse practitioner, or a physician's preschool assistant director working with me, has a face-to -face encounter with this patient.
== END 2016-10-26 11:36 | disposition home health service (06) | DRG 177 ==
LOC: EMEROO 15:52 → 3ANU 15:52 → 2NENU 21:24 → SUATTDRO 10-18 00:41
PROVIDERS: ADMIT Family Medicine; ATTEND Internal Medicine